=== PATIENT | male | born 1950 | race Caucasian/White ===

== ENCOUNTER 2023-09-17 15:27 | Inpatient (IN) | payer MEDICARE, SELFPAY ==
[2023-09-17] VITALS (23 sets, daily range): BP systolic 115–158; BP diastolic 74–132; PULSE 95–133; RESP 12–42; TEMP 35.8–37.1; O2SAT 86–99; BMI 38.7
--- NOTE | 2023-09-17 17:16 | ED.RN ---
NO OLD EKG
[2023-09-17 17:22] LABS: Absolute Lymphocyte Count 1.61 X10^3/uL (0.83-4.51); Absolute Neutrophil Count 10.3 X10^3/uL (2.0-7.7); Basophil# 0.08 X10^3/uL; Basophil% 0.6 % (0-1); Eosinophil# 0.18 X10^3/uL; Eosinophils% 1.4 % (0-5); Hematocrit 50.3 % (40-54); Hemoglobin 14.8 g/dL (13.0-16.5); Lymphocyte # 1.61 X10^3/ul (0.83-4.51); Lymphocyte % 12.5 % (19-41); Mean Corp Hgb Conc 29.4 g/dL (32-36); Mean Corpuscular Hgb 25.3 pg (27.0-32.0); Mean Corpuscular Volume 85.8 fL (80-94); Monocyte# 0.71 X10^3/uL; Monocyte% 5.5 % (0-10); NRBC Flagged by Analyzer 0 % (0-5); Neutrophil # 10.27 X10^3/uL (2.7-7.7); Neutrophil % 79.5 % (47-70); Platelet Count 187 K/mm3 (150-450); RBC Distribution Width CV 18.2 % (11.6-14.6); RBC Distribution Width SD 54.3 fl (35.1-43.9); Red Blood Count 5.86 M/mm3 (4.6-6.2); White Blood Count 12.9 K/mm3 (4.4-11.0)
[2023-09-17] MEDS: 0.9% Normal Saline (1000mL) 1,000 ML 999 ML IV (17:25)
--- NOTE | 2023-09-17 17:25 | RAD_ITS ---
INDICATION: tachycardia EXAMINATION/TECHNIQUE: X-RAY - XR Chest 1 View COMPARISON: No previous relevant examinations available for comparison.. FINDINGS: LIFE-SUPPORT AND LINES: 1. None HEART AND VESSELS: The cardiac silhouette, pulmonary vasculature have normal appearance. No evidence of congestive failure. LUNGS AND PLEURAL SPACES: Bibasilar atelectasis versus superimposed infiltrate particularly at LEFT lung base and bilateral effusions. No pulmonary mass is noted. MEDIASTINUM AND HILAR REGIONS: No masses adenopathy noted. No areas of calcification. Visualized upper airway is normal in position. BONY ELEMENTS: No acute bony changes noted. RAD/Chest 1 View (Portable) IMPRESSION: 1. Bibasilar atelectasis versus superimposed interstitial infiltrate particularly at LEFT lung base. 2. Bilateral effusions. 3. No congestive failure. Electronically Signed: Demario Alva MD at 17:53 EST ,
[2023-09-17 17:30] LABS: International Normalized Ratio 1.2; Prothrombin Time (Protime)PT. 15.5 SECONDS (11.7-14.9)
[2023-09-17 17:31] LABS: Partial Thromboplast Time 28.3 Seconds (24.1-36.2)
[2023-09-17 17:38] LABS: ALB/GLOB Ratio 0.7 RATIO (0.9-2.4); AST(SGOT) 16 U/L (15-37); Alanine Aminotransfer ALT/SGPT 21 U/L (16-61); Albumin, Serum 2.9 g/dL (3.2-5.0); Alkaline Phosphatase 94 U/L (45-117); Anion Gap 4 (5-15); BUN 25 mg/dL (7-18); BUN/Creat Ratio 22.9 RATIO (10-20); Calcium,Total 9.1 mg/dL (8.5-10.1); Chloride 108 mmol/L (98-107); Creatinine, Serum 1.09 mg/dL (0.70-1.30); EST Glomerular Filtration Rate 71 mL/min (>60); Est Glom Filt Rate - Afr Amer 85 mL/min (>60); Glucose 167 mg/dL (74-106); Potassium 4.3 mmol/L (3.5-5.1); Protein, Total 6.9 g/dL (6.4-8.2); Sodium Level 142 mmol/L (136-145)
--- NOTE | 2023-09-17 17:54 | EX.ED.DYSGE1 ---
HPI History of Present Illness Chief Complaint: Wound Check Narrative Narrative: 73-year-old male presenting with a blister on the right tibial region. He states it started hurting yesterday and felt like a nail in his tibia but now it does not hurt at all and he has developed a mildly erythematous pustule. Denies any trauma. Patient states that he has a history of A-fib, hypertension, hyperlipidemia COPD, anxiety diabetes. States has been out of his medications for A-fib for several months. He states he could not afford them. He states he was previously on something for heart rate control and Eliquis. He has not been taking these. Patient states that has been month. Still he did not have any healthcare insurance but now has it. He is not established with a primary care physician. Patient states he became quite sick over the last 2 weeks and started with chills and cough with sputum. Had not a fever that he knows of. No nausea or vomiting. Patient states he is unable to shake the cold that he had. He was not tested for anything. Patient states that he is not having any chest pain but he is short of breath. He does not usually require oxygen and showed up today on room air at 86%. His significant other states that she has been putting him on oxygen while he sleeps at night for the last couple of days which belongs to her. Patient is an every day smoker. [facility] Medical History Anxiety Atrial fibrillation Atrial flutter COPD (chronic obstructive pulmonary disease) Diabetes mellitus Diabetic neuropathy Hyperlipidemia associated with type 2 diabetes mellitus Hypertension Stenosis of right internal carotid artery Home Medications gabapentin 100 mg capsule 100 mg PO TID 09/17/23 [History Last Taken 09/17/23] hydroxyzine pamoate 25 mg capsule 25 mg PO TID 09/17/23 [History Last Taken Unknown] lorazepam 0.5 mg tablet (Ativan) 0.5 mg PO DAILY 09/17/23 [History Last Taken 09/17/23] losartan 50 mg tablet (Cozaar) 50 mg PO DAILY 09/17/23 [History Last Taken 09/17/23] sertraline 50 mg tablet (Zoloft) 50 mg PO DAILY 09/17/23 [History Last Taken Unknown] Allergy/AdvReac Type Severity Reaction Status Date / Time No Known Allergies Allergy Verified 09/17/23 15:28 Social History Smoking Status: Heavy Smoker (>10/day) EXAM Physical Exam Const Vital Signs: 09/17/23 15:28 09/17/23 17:03 09/17/23 17:05 Temperature 97.1 F L 98.6 F Temperature Source Temporal Oral Pulse Rate 131 H 130 H Respiratory Rate 22 H 18 Respiratory Effort Short of Breath Respiratory Pattern Tachypnea Blood Pressure 136/88 H 140/97 H Blood Pressure Mean 104 111 Pulse Ox 86 97 Oxygen Delivery Method Room Air Nasal Cannula Oxygen Flow Rate (L/min) 2 Fraction of Inspired Oxygen (FIO2) 09/17/23 17:11 09/17/23 18:14 09/17/23 18:17 Temperature Temperature Source Pulse Rate 99 104 H Respiratory Rate 25 H 20 H Respiratory Effort Respiratory Pattern Tachypnea Blood Pressure 115/84 H Blood Pressure Mean 94 Pulse Ox 96 Oxygen Delivery Method Room Air Room Air Oxygen Flow Rate (L/min) Fraction of Inspired Oxygen (FIO2) 09/17/23 19:05 09/17/23 19:14 09/17/23 19:15 Temperature 98.7 F Temperature Source Oral Pulse Rate 132 H 102 H 99 Respiratory Rate 33 H 28 H 31 H Respiratory Effort Respiratory Pattern Blood Pressure 129/93 H 141/74 H Blood Pressure Mean 105 95 Pulse Ox 92 95 Oxygen Delivery Method Nasal Cannula Nasal Cannula Oxygen Flow Rate (L/min) 2 Fraction of Inspired Oxygen (FIO2) 09/17/23 19:20 09/17/23 20:00 09/17/23 19:30 Temperature Temperature Source Pulse Rate 131 H 122 H 114 H Respiratory Rate 42 H 27 H 33 H Respiratory Effort Respiratory Pattern Tachypnea Blood Pressure 129/119 H Blood Pressure Mean 124 Pulse Ox 99 Oxygen Delivery Method Oxygen Flow Rate (L/min) Fraction of Inspired Oxygen (FIO2) 30 09/17/23 19:40 09/17/23 19:45 09/17/23 19:50 Temperature Temperature Source Pulse Rate 132 H 133 H 132 H Respiratory Rate 36 H 27 H 34 H Respiratory Effort Respiratory Pattern Blood Pressure 145/132 H Blood Pressure Mean 137 Pulse Ox Oxygen Delivery Method Oxygen Flow Rate (L/min) Fraction of Inspired Oxygen (FIO2) 09/17/23 20:00 09/17/23 20:10 Temperature 97.6 F L Temperature Source Temporal Pulse Rate 131 H 133 H Respiratory Rate 26 H 15 Respiratory Effort Respiratory Pattern Blood Pressure 138/102 H Blood Pressure Mean 113 Pulse Ox 99 Oxygen Delivery Method Bi-pap Oxygen Flow Rate (L/min) Fraction of Inspired Oxygen (FIO2) Positive unkempt Constitutional Narrative: Tachypneic. Speaking in one-word sentences. General Appearance ED: unkempt HEENT Reports dry mucous membranes trauma Mouth ED: Yes dry mucous membranes Mouth: dry mucous membranes Eyes PERRL and EOMs intact bilaterally General Eye ED: Negative for pale conjunctiva Chest Wall inspection of chest normal Resp Resp Narrative: Neck. Auscultation: wheezes scattered wheezes and diminished lung sounds bilateral lower Cardio Rate: tachycardic Rhythm: abnormal rhythm irregularly irregular GI normal to inspection, nondistended, normoactive bowel sounds Back/Spine no CVA tenderness Neuro oriented x3 and CN's II-XII intact bilaterally Psych Appearance: unkempt MDM MDM MDM Narrative Medical decision making narrative: Patient presenting hypoxic with tachycardia and in mild respiratory distress. He is talking in short sentences. Patient has history of medical noncompliance with medication for A-fib as well as he is a current smoker with history of COPD. He is also had recent illness. Differential includes acute coronary syndrome, CHF, pneumonia, COVID, influenza, dehydration, anemia, electro abnormalities, A-fib, a flutter, COPD exacerbation. CBC was obtained to assess white blood cell count, hemoglobin, platelets. CMP to assess liver function, renal function, electrolytes, glucose. Lactic acid was obtained as part of a septic workup. PT/INR also obtained and INR is normal. PTT minimally prolonged at 50.5. Electrolytes within normal limits. Renal function normal. Glucose 167 without anion gap. BNP elevated at 373.6. EKG on my interpretation showed A-fib at a ventricular rate of 130. Patient given 20 of Cardizem and his heart rate came down to about 100. He was initially feeling better but became very anxious. He expresses to me that is a history of anxiety so he was given 0.5 mg of Ativan. D-dimer was elevated so he was taken for CTA which does not identify any PE, dissection. Does identify bibasilar pneumonia. Chest x-ray on my interpretation did show basilar infiltrates. Since BNP was elevated he was given Lasix 40 mg IV. He was covered with Rocephin and azithromycin for his infiltrates. COVID came back positive after this. For his COPD and wheezing he was given Solu-Medrol 125 and breathing treatments. He is currently on BiPAP as he was anxious and tachypneic and this seems to be helping him. Reevaluation at 8:30 PM the patient is doing very well and resting comfortably and states that the BiPAP is working. Discussed with hospitalist for admission. Impression: 1. COVID-19 2. Bilateral pneumonia 3. Hypoxic respiratory failure 4. CHF 5. COPD 6. Medical noncompliance 7. Atrial fibrillation Lab Data Attestation: I reviewed the patient's lab results. Labs: Laboratory Results - last 24 hr 09/17/23 09/17/23 17:00 18:01 WBC 12.9 H RBC 5.86 Hgb 14.8 Hct 50.3 MCV 85.8 MCH 25.3 L MCHC 29.4 L RDW Std Deviation 54.3 H RDW Coeff of Bettie 18.2 H Plt Count 187 MPV 10.0 Immature Gran % (Auto) 0.500 Neut % (Auto) 79.5 H Lymph % (Auto) 12.5 L [place] % (Auto) 5.5 Eos % (Auto) 1.4 Baso % (Auto) 0.6 Absolute Neuts (auto) 10.3 H Absolute Lymphs (auto) 1.61 Nucleated RBC % 0 PT 15.5 H INR 1.2 APTT 28.3 D-Dimer Quant (PE/DVT) 1.52 H* Sodium 142 Potassium 4.3 Chloride 108 H Carbon Dioxide 30.0 Anion Gap 4 L BUN 25 H Creatinine 1.09 Est GFR (MDRD) Af Amer 85 Est GFR (MDRD) Non-Af 71 BUN/Creatinine Ratio 22.9 H Glucose 167 H Lactic Acid 1.2 Calcium 9.1 Total Bilirubin 0.80 AST 16 ALT 21 Alkaline Phosphatase 94 B-Natriuretic Peptide 373.6 H Total Protein 6.9 Albumin 2.9 L Globulin 4.0 Albumin/Globulin Ratio 0.7 L Urine Color Yellow Urine Clarity Clear Urine pH 5.0 Ur Specific Tyler 1.030 Urine Protein 100 H Urine Glucose (UA) Normal Urine Ketones Negative Urine Occult Blood Negative Urine Nitrite Negative Urine Bilirubin Negative Urine Urobilinogen 1 H Ur Leukocyte Esterase 25 H Urine RBC 0 SEEN Urine WBC 0-5 SEEN Ur Squamous Epith Cells 0 SEEN Urine Bacteria 0 SEEN Urine Mucus 0 SEEN ABG Data ABG results: ABG 09/17/23 19:36 Specimen Type ART Sample Site L Radial pH 7.39 Bicarbonate Actual 27.7 H Total CO2 29 Base Excess 3 H O2 Saturation 92 L O2 % 2.0 ABG pCO2 46.0 H ABG pO2 65 L Gennaro Test Positive O2 Delivery Device Cannula Vent Mode Not entered Radiography Diagnostic Testing: Clinical Impression(s) from Imaging Studies Chest X-Ray 09/17/23 17:25 IMPRESSION: 1. Bibasilar atelectasis versus superimposed interstitial infiltrate particularly at LEFT lung base. 2. Bilateral effusions. 3. No congestive failure. Electronically Signed: Demario Alva MD at 17:53 EST , Chest CTA 09/17/23 18:21 IMPRESSION: undefined Critical Care Time Critical Care Time: Yes Critical care time (excluding procedures): 30-74 minutes (32), Discussing w/Patient &/or Family/Carbon Lamp Cleaner, Discussing w/Consultants, Arranging Admission or Transfer and Performing Direct Patient Care at Bedside Discharge Plan Triage Chief Complaint: Wound Check ED Provider: Jimi Bustillos Dx/Rx/DC Orders Prescriptions: No Action lorazepam [Ativan] 0.5 mg tablet 0.5 mg PO DAILY losartan [Cozaar] 50 mg tablet 50 mg PO DAILY gabapentin 100 mg capsule 100 mg PO TID sertraline [Zoloft] 50 mg tablet 50 mg PO DAILY hydroxyzine pamoate 25 mg capsule 25 mg PO TID Primary Care Provider: Care Physician,No Primary Referrals: Care Physician,No Primary [Primary Care Provider] -
[2023-09-17] MEDS: dilTIAZem 25 MG/5 ML Vial 20 MG IV BOLUS (17:58)
[2023-09-17 18:06] LABS: Bacteria 0 SEEN /hpf (None Seen); Mucous, Urine 0 SEEN /hpf (<or=2+); Red Blood Cells-Urine 0 SEEN /hpf (0-5); Squamous Epithelial Cells - UA 0 SEEN /hpf (0-5)
[2023-09-17 18:07] LABS: Color, Urine Yellow (Yellow); Glucose, Dipstick Normal (Normal); Ketone-Dipstick Negative (Negative); Leukocyte Esterase-Dipstick 25 /ul (Negative); Nitrite-Dipstick Negative (Negative); Occult Blood-Urine Negative /ul (Negative); Protein-Dipstick 100 mg/dl (Negative); Urine Bilirubin Dipstick Negative (Negative); Urine Clarity Clear (Clear); Urine Urobilinogen 1 mg/dl (Normal)
[2023-09-17] MEDS: MethylPREDNISolone 125 MG/2 ML Vial IV (18:10)
[2023-09-17] MEDS: Furosemide 40 MG/4 ML Vial IV (18:11)
[2023-09-17] MEDS: Ipratropium/Albuterol Sulfate 3 ML AMPUL.NEB INHALATION (18:13)
[2023-09-17] MEDS: Albuterol 2.5 MG/3 ML VIAL.NEB. INHALATION (18:13)
[2023-09-17 18:16] LABS: D-Dimer Quantitative (DVT/PE) 1.52 FEU/ug/m (0.27-0.49)
[2023-09-17 18:18] LABS: White Blood Cells 0-5 SEEN /hpf (0-5)
--- NOTE | 2023-09-17 18:21 | CT_ITS ---
STUDY: CTA CHEST REASON FOR EXAM: Male, 73 years old. hypoxia RADIATION DOSAGE (If Supplied By Facility): CTDIvol = ( 31.66 ) mGy, DLP = ( 633.53 ) mGycm TECHNIQUE: The examination was performed with the intravenous administration of IV 100mL Isovue-370. Post-processing of the angiographic images was performed, with multiplanar reformation and 3D reconstruction. Individualized dose optimization techniques were used for this CT. Radiation Dose (provided by facility) CTDIvol (NA ) mGy, DLP ( NA) mGy-cm COMPARISON: None. FINDINGS: Tubes and lines: 1. No life-support noted. CTA: PULMONARY ARTERIES: There is normal configuration and contrast opacification of pulmonary outflow tract, main pulmonary arteries, segmental and intersegmental pulmonary arteries bilaterally without evidence of intraluminal filling defects. AORTIC ARCH: The aortic arch and descending aorta have normal configuration. No evidence of dissection or aneurysmal dilatation. HEART: Cardiac contour is normal. No evidence pericardial effusion. Diffuse coarse coronary vascular calcifications CT CHEST: LUNGS: [Bilateral pleural effusions. Focal area of airspace consolidation involving the lingula of the LEFT upper lobe, and patchy area of parenchymal consolidation along the anterior aspect of the RIGHT major fissure. There is extensive bibasilar interstitial and groundglass infiltrate and areas of atelectasis. PLEURAL SPACES: Bilateral pleural fluid collections.. MEDIASTINUM AND LYMPH NODES: Unremarkable. No significant adenopathy. Calcified nodes are present at the LEFT hilum. BONES: Unremarkable. Diffuse thoracic spondylosis and marginal osteophyte formation. No canal stenosis. ABDOMEN: Moderate ascites. Other: None IMPRESSIONS: 1. No CTA evidence of pulmonary embolism. 2. No CTA evidence of aortic aneurysm or dissection 3. Normal CT appearance of the heart and pericardium with the exception of coronary vascular calcifications.. 4. Bilateral pleural fluid collections, basilar atelectasis and superimposed interstitial and groundglass infiltrates at both lung bases. Bibasilar pneumonia suspected. Additional consolidation in the lingula of LEFT upper lobe and along the major fissure on the RIGHT. Electronically Signed: Demraio Alva MD at 19:17 EST , CT/CTA Chest W/WO Contrast IMPRESSION: undefined
[2023-09-17 18:22] LABS: Lactic Acid 1.2 mmol/L (0.4-1.9)
[2023-09-17 18:48] LABS: BNP,B-Type NATRIURETIC PEPTIDE 373.6 pg/mL (0-100)
[2023-09-17] MEDS: LORazepam 2 MG/ML Syringe 0.5 MG IV (19:03)
[2023-09-17 19:40] LABS: Allen Test Positive; Base Excess 3 mmol/L (-2 to +2); Bicarbonate 27.7 mmol/L (22-26); Blood Gas Specimen Type ART; Mode Not entered; O2 Delivery Device Cannula; PO2 65 mmHG (75-100); SITE L Radial; SO2 92 % (95-99); Total Carbon Dioxide 29 mmol/L; pH 7.39 (7.35-7.45)
[2023-09-17] MEDS: Ceftriaxone 1 GM/50 ML BAG IV (19:55)
--- NOTE | 2023-09-17 20:26 | PCM.HP.STD ---
Documented by User: Dr. Amparo Sotelo MD 09/17/23 20:35 HPI - General General Date of Admission: 09/17/23 Date of Service: 09/17/23 Chief Complaint: Feeling poorly for the past month. HPI Narrative ANNA PEREYRA, is a 73 M with a past medical history of essential hypertension, hyperlipidemia, DM-2; of unknown control, diabetic neuropathy, history of tobacco abuse; with subsequent COPD, chronic atrial fibrillation; not taking Eliquis because he could not afford medication, history of Right carotid stenosis, chronic RLE wound and medical noncompliance; with patient out of several medications for months who presents to [facility] ER complaining of feeling poorly for the past month. Mr. Pereyra reports his symptoms [facility] Medical History Anxiety Atrial fibrillation Atrial flutter COPD (chronic obstructive pulmonary disease) Diabetes mellitus Diabetic neuropathy Hyperlipidemia associated with type 2 diabetes mellitus Hypertension Stenosis of right internal carotid artery Home Medications gabapentin 100 mg capsule 100 mg PO TID 09/17/23 [History Last Taken 09/17/23] hydroxyzine pamoate 25 mg capsule 25 mg PO TID 09/17/23 [History Last Taken Unknown] lorazepam 0.5 mg tablet (Ativan) 0.5 mg PO DAILY 09/17/23 [History Last Taken 09/17/23] losartan 50 mg tablet (Cozaar) 50 mg PO DAILY 09/17/23 [History Last Taken 09/17/23] sertraline 50 mg tablet (Zoloft) 50 mg PO DAILY 09/17/23 [History Last Taken Unknown] Allergy/AdvReac Type Severity Reaction Status Date / Time No Known Allergies Allergy Verified 09/17/23 15:28 Social History household members: significant other current occupational status: retired Smoking Status: Heavy Smoker (>10/day) Vital Signs Vital Signs Vital Signs: 09/17/23 15:28 09/17/23 17:03 09/17/23 17:05 Temperature 97.1 F L 98.6 F Temperature Source Temporal Oral Pulse Rate 131 H 130 H Respiratory Rate 22 H 18 Respiratory Effort Short of Breath Respiratory Pattern Tachypnea Blood Pressure 136/88 H 140/97 H Blood Pressure Mean 104 111 Pulse Ox 86 97 Oxygen Delivery Method Room Air Nasal Cannula Oxygen Flow Rate (L/min) 2 Fraction of Inspired Oxygen (FIO2) 09/17/23 17:11 09/17/23 18:14 09/17/23 18:17 Temperature Temperature Source Pulse Rate 99 104 H Respiratory Rate 25 H 20 H Respiratory Effort Respiratory Pattern Tachypnea Blood Pressure 115/84 H Blood Pressure Mean 94 Pulse Ox 96 Oxygen Delivery Method Room Air Room Air Oxygen Flow Rate (L/min) Fraction of Inspired Oxygen (FIO2) 09/17/23 19:05 09/17/23 19:14 09/17/23 19:15 Temperature 98.7 F Temperature Source Oral Pulse Rate 132 H 102 H 99 Respiratory Rate 33 H 28 H 31 H Respiratory Effort Respiratory Pattern Blood Pressure 129/93 H 141/74 H Blood Pressure Mean 105 95 Pulse Ox 92 95 Oxygen Delivery Method Nasal Cannula Nasal Cannula Oxygen Flow Rate (L/min) 2 Fraction of Inspired Oxygen (FIO2) 09/17/23 19:20 09/17/23 20:00 09/17/23 19:30 Temperature Temperature Source Pulse Rate 131 H 122 H 114 H Respiratory Rate 42 H 27 H 33 H Respiratory Effort Respiratory Pattern Tachypnea Blood Pressure 129/119 H Blood Pressure Mean 124 Pulse Ox 99 Oxygen Delivery Method Oxygen Flow Rate (L/min) Fraction of Inspired Oxygen (FIO2) 30 09/17/23 19:40 09/17/23 19:45 09/17/23 19:50 Temperature Temperature Source Pulse Rate 132 H 133 H 132 H Respiratory Rate 36 H 27 H 34 H Respiratory Effort Respiratory Pattern Blood Pressure 145/132 H Blood Pressure Mean 137 Pulse Ox Oxygen Delivery Method Oxygen Flow Rate (L/min) Fraction of Inspired Oxygen (FIO2) 09/17/23 20:00 09/17/23 20:10 Temperature 97.6 F L Temperature Source Temporal Pulse Rate 131 H 133 H Respiratory Rate 26 H 15 Respiratory Effort Respiratory Pattern Blood Pressure 138/102 H Blood Pressure Mean 113 Pulse Ox 99 Oxygen Delivery Method Bi-pap Oxygen Flow Rate (L/min) Fraction of Inspired Oxygen (FIO2) Results Lab / Micro Data 09/17/23 17:00 09/17/23 17:00 Labs: Laboratory Results - last 24 hr 09/17/23 17:00: WBC 12.9 H, RBC 5.86, Hgb 14.8, Hct 50.3, MCV 85.8, MCH 25.3 L, MCHC 29.4 L, RDW Std Deviation 54.3 H, RDW Coeff of Bettie 18.2 H, Plt Count 187, MPV 10.0, Immature Gran % (Auto) 0.500, Neut % (Auto) 79.5 H, Lymph % (Auto) 12.5 L, [place] % (Auto) 5.5, Eos % (Auto) 1.4, Baso % (Auto) 0.6, Absolute Neuts (auto) 10.3 H, Absolute Lymphs (auto) 1.61, Nucleated RBC % 0, PT 15.5 H, INR 1.2, APTT 28.3, D-Dimer Quant (PE/DVT) 1.52 H*, Sodium 142, Potassium 4.3, Chloride 108 H, Carbon Dioxide 30.0, Anion Gap 4 L, BUN 25 H, Creatinine 1.09, Est GFR (MDRD) Af Amer 85, Est GFR (MDRD) Non-Af 71, BUN/Creatinine Ratio 22.9 H, Glucose 167 H, Lactic Acid 1.2, Calcium 9.1, Total Bilirubin 0.80, AST 16, ALT 21, Alkaline Phosphatase 94, B-Natriuretic Peptide 373.6 H, Total Protein 6.9, Albumin 2.9 L, Globulin 4.0, Albumin/Globulin Ratio 0.7 L 09/17/23 18:01: Urine Color Yellow, Urine Clarity Clear, Urine pH 5.0, Ur Specific [place] 1.030, Urine Protein 100 H, Urine Glucose (UA) Normal, Urine Ketones Negative, Urine Occult Blood Negative, Urine Nitrite Negative, Urine Bilirubin Negative, Urine Urobilinogen 1 H, Ur Leukocyte Esterase 25 H, Urine RBC 0 SEEN, Urine WBC 0-5 SEEN, Ur Squamous Epith Cells 0 SEEN, Urine Bacteria 0 SEEN, Urine Mucus 0 SEEN Micro: Microbiology 09/17/23 17:27 Mucosa - Nose SARS-CoV-2, Influenza & RSV (PCR) - Final SARS-CoV-2 (COVID 19) ABG Data ABG results: ABG 09/17/23 19:36 Specimen Type ART Sample Site L Radial pH 7.39 Bicarbonate Actual 27.7 H Total CO2 29 Base Excess 3 H O2 Saturation 92 L O2 % 2.0 ABG pCO2 46.0 H ABG pO2 65 L Gennaro Test Positive O2 Delivery Device Cannula Vent Mode Not entered Imagaing Radiology Impression Chest X-Ray 09/17/23 17:25 IMPRESSION: 1. Bibasilar atelectasis versus superimposed interstitial infiltrate particularly at LEFT lung base. 2. Bilateral effusions. 3. No congestive failure. Electronically Signed: Demario Alva MD at 17:53 EST , Chest CTA 09/17/23 18:21 IMPRESSION: undefined Assessment & Plan Assessment/Plan (1) COVID-19: (2) Bacterial pneumonia: (3) Acute exacerbation of COPD with asthma: (4) Chronic atrial fibrillation with rapid ventricular response: (5) Cellulitis of right leg: (6) Medical non-compliance: Documented by User: Dr. Donn Tirado DO 09/18/23 05:18 HPI - General General Date of Admission: 09/17/23 HPI Narrative ANNA PEREYRA, is a 73 M with a past medical history of essential hypertension, hyperlipidemia, DM-2; of unknown control, diabetic neuropathy, chronic tobacco abuse that is still ongoing; with subsequent COPD, chronic atrial fibrillation; not taking Eliquis because he could not afford medication, history of Right carotid stenosis, chronic RLE wound and medical noncompliance; with patient out of several medications for months who presents to [facility] ER complaining of feeling poorly for the past month. Mr. Pereyra reports his acute symptoms began approximately 2 weeks prior to admission with the gradual-onset of a viral URI that slowly progressed to involve chills, malaise and cough productive of whitish sputum. He does not usually require supplemental oxygen but today in the ER his oxygen saturation was 86% on RA. He denies associated fever, chest pain, nausea or vomiting but he does admit to an acute worsening of his chronic generalized anxiety. In the ER his viral assay returned positive for COVID-19 complicated by radiographic evidence of bibasilar infiltrates suspicious for bacterial pneumonia superinfection compounded by clinical evidence of AE COPD with acute hypoxic respiratory failure; requiring BiPAP, all collectively triggering atrial fibrillation; with RVR requiring initiation of treatment with IV Cardizem and he was then admitted to the PCU for ongoing care for a stay that is expected to be greater than 48 hours. [facility] Medical History Anxiety Atrial fibrillation Atrial flutter COPD (chronic obstructive pulmonary disease) Diabetes mellitus Diabetic neuropathy Hyperlipidemia associated with type 2 diabetes mellitus Hypertension Stenosis of right internal carotid artery Home Medications gabapentin 100 mg capsule 100 mg PO TID 09/17/23 [History Last Taken 09/17/23] hydroxyzine pamoate 25 mg capsule 25 mg PO TID 09/17/23 [History Last Taken Unknown] lorazepam 0.5 mg tablet (Ativan) 0.5 mg PO DAILY 09/17/23 [History Last Taken 09/17/23] losartan 50 mg tablet (Cozaar) 50 mg PO DAILY 09/17/23 [History Last Taken 09/17/23] sertraline 50 mg tablet (Zoloft) 50 mg PO DAILY 09/17/23 [History Last Taken Unknown] Allergy/AdvReac Type Severity Reaction Status Date / Time No Known Allergies Allergy Verified 09/17/23 15:28 Social History household members: significant other current occupational status: retired Smoking Status: Heavy Smoker (>10/day) ROS ROS Narrative Review of systems: Constitutional: Patient appears unkempt and is speaking in 1-2 word sentences but denies fever or chills. Eyes: Patient denies visual changes or discharge from eyes. ENT: Patient admits to viral upper respiratory infection with nasal and chest congestion but denies sore throat or ear pain. Cardiovascular: Patient denies chest pain or palpitations. Gastrointestinal: Patient denies nausea, vomiting, diarrhea or constipation. Musculoskeletal: Patient admits to generalized weakness and lower extremity edema. Integumentary: Patient admits to recent cyst on his right garcia with recent rupture and subsequent surrounding cellulitis with tenderness to palpation. Neurologic: Patient denies headache, paresthesias or focal neurologic deficits. Allergic: Patient denies lip swelling, tongue swelling or urticaria. Hematologic: Patient denies easy bleeding or easy bruisability. Psychiatric: Patient denies uncontrolled depression or anxiety. Endocrinologic: Patient denies polyuria, polydipsia or polyphagia. 14 point review systems otherwise negative except for positives noted above in HPI. Physical Exam Const alert and oriented x3 Constitutional Narrative: Patient is morbidly obese, appears older than stated age and has mildly labored respirations on BiPAP. General Appearance: cooperative HEENT normocephalic, head/scalp atraumatic, hearing grossly normal bilaterally and moist oral mucous membranes Eyes PERRL and EOMs intact bilaterally Neck no lymphadenopathy and supple Resp Resp Narrative: Minich breath sounds throughout with scattered wheezes and rhonchi. Auscultation: rhonchi and wheezes Cardio Cardio Narrative: Irregularly irregular at approximately 130 bpm. GI normal to inspection, nondistended, normoactive bowel sounds, soft to palpation, non-tender and non-distended Extremity Extremity Narrative: Patient has evidence of recent cyst rupture on his right anterior garcia with surrounding erythema and tenderness to palpation consistent with cellulitis. Skin Skin Narrative: Patient has evidence of recent cyst rupture on his right anterior garcia with surrounding erythema and tenderness to palpation consistent with cellulitis. Neuro oriented x3, CN's II-XII intact bilaterally, moves all extremities and no focal motor deficits Sensorium / Orientation: awake, alert, oriented to person, oriented to place and oriented to time Speech: speech normal Motor Exam: strength 5/5 throughout Psych affect normal Results Medical Records Data Attestation: I reviewed the patient's medical records Lab / Micro Data Attestation: I reviewed the patient's lab results. Lab results narrative: [facility] [address] [place] [address] CTA Chest W/WO Contrast MR#: [id number] Acct: [id number] Name: ANNA PEREYRANE Rep #: [id number] : 1950 M 73 From: Demario Alva MD PCP: Care Physician,No Primary Status: REG ER Study: CTA Chest W/WO Contrast Date of Exam: 09/17/23 Exam# [id number] Ordering Dr: Jimi Bustillos DO STUDY: CTA CHEST REASON FOR EXAM: Male, 73 years old. hypoxia RADIATION DOSAGE (If Supplied By Facility): CTDIvol = ( 31.66 ) mGy, DLP = ( 633.53 ) mGycm TECHNIQUE: The examination was performed with the intravenous administration of IV 100mL Isovue-370. Post-processing of the angiographic images was performed, with multiplanar reformation and 3D reconstruction. Individualized dose optimization techniques were used for this CT. Radiation Dose (provided by facility) CTDIvol (NA ) mGy, DLP ( NA) mGy-cm COMPARISON: None. FINDINGS: Tubes and lines: 1. No life-support noted. CTA: PULMONARY ARTERIES: There is normal configuration and contrast opacification of pulmonary outflow tract, main pulmonary arteries, segmental and intersegmental pulmonary arteries bilaterally without evidence of intraluminal filling defects. AORTIC ARCH: The aortic arch and descending aorta have normal configuration. No evidence of dissection or aneurysmal dilatation. HEART: Cardiac contour is normal. No evidence pericardial effusion. Diffuse coarse coronary vascular calcifications CT CHEST: LUNGS: [Bilateral pleural effusions. Focal area of airspace consolidation involving the lingula of the LEFT upper lobe, and patchy area of parenchymal consolidation along the anterior aspect of the RIGHT major fissure. There is extensive bibasilar interstitial and groundglass infiltrate and areas of atelectasis. PLEURAL SPACES: Bilateral pleural fluid collections.. MEDIASTINUM AND LYMPH NODES: Unremarkable. No significant adenopathy. Calcified nodes are present at the LEFT hilum. BONES: Unremarkable. Diffuse thoracic spondylosis and marginal osteophyte formation. No canal stenosis. ABDOMEN: Moderate ascites. Other: None IMPRESSIONS: 1. No CTA evidence of pulmonary embolism. 2. No CTA evidence of aortic aneurysm or dissection 3. Normal CT appearance of the heart and pericardium with the exception of coronary vascular calcifications.. 4. Bilateral pleural fluid collections, basilar atelectasis and superimposed interstitial and groundglass infiltrates at both lung bases. Bibasilar pneumonia suspected. Additional consolidation in the lingula of LEFT upper lobe and along the major fissure on the RIGHT. Electronically Signed: Demario Alva MD at 19:17 EST , CT/CTA Chest W/WO Contrast IMPRESSION: undefined CC: Dr. Jimi Bustillos, DO; No Primary Care Physician ~ [employer]: Signed 09/17/23 17:00 09/17/23 17:00 Assessment & Plan Assessment/Plan (1) COVID-19: (2) Bacterial pneumonia: (3) Acute exacerbation of COPD with asthma: (4) Chronic atrial fibrillation with rapid ventricular response: (5) Cellulitis of right leg: (6) Medical non-compliance: PLAN: Plan 1. Acute COVID-19 pneumonitis complicated by bibasilar bacterial pneumonia superinfection - Admit to PCU under contact and droplet precautions. Continue broad-spectrum antibiotics and await culture and sensitivity data. Give Tylenol prn for pain or fever. Give scheduled Mucinex BID to both thin and mobilize secretions. Give vitamin D3, vitamin C and Zinc to promote a healthy immune response and to help speed recovery. 2. AE COPD with acute hypoxic respiratory failure requiring BiPAP arising from #1 - Continue IV Solumedrol with scheduled and prn nebulizers. Tobacco cessation will be strongly encouraged with Nicotine patch offered to control cravings. 3. Chronic Atrial Fibrillation; with RVR attributable to #1 & #2 - Resume IV Cardizem begun in the ER and titrate to keep heart rate < 100 bpm. Also start full-dose Lovenox for CVA prophylaxis. Serialize troponin. Check echocardiogram to evaluate LVEF. 4. Cellulitis of the Left leg with recent ruptured cyst with severe bilateral leg edema adding to the pathology of #1 - #3 - Noted. Antibiotics for #1 should help this to resolve. MRSA PCR pending. Elevated d-dimer of 1.52 present on admission with negative CTA of the chest. Check bilateral LE dopplers in the AM to evaluate for potential DVT. Finally, we will consult the Wound RN to see this patient on-rounds in the AM for further recommendations with help appreciated in advance. 5. Medical Noncompliance with Acute flare of chronic generalized anxiety - Patient was encouraged to take his medications as prescribed and keep his follow appointments as recommended. Continue Ativan prn for breakthrough anxiety. 6. Essential hypertension - Restart home regimen plus give IV Hydralazine for systolic blood pressure > 160 mm Hg. 7. Hyperlipidemia - Continue statin and check lipid profile this admission. 8. DM-2; of unknown control with diabetic neuropathy - ADA/Cardiac diet. FSBS q. AC/HS plus SSI. Check HgbA1c to objectively assess quality of diabetic control. 9. History of Right carotid stenosis - Stable. 10. DVT/GI prophylaxis - Patient already on full-dose Lovenox for #3. We will also start IV Pepcid in light of steroids for #2. Avoid SCD's until DVT definitively ruled out on doppler examination. Total time: Approximately 55 minutes. Charges/Coding Visit Charges Inpatient E&M: 85015 Init Hosp L2
[2023-09-17] MEDS: Azithromycin 500 MG in Dextrose 5%-Water (250mL Bag) 250 ML 250 MG IV (20:30)
--- OUTSIDE RECORDS SUMMARY | 2023-09-17 21:01 | XMS RPT_ITS | CCD ---
Author Name Unknown Address [address] [place] [address] Organization [facility] Care Team Providers Care Color Control Supervisor Name Role Phone BIAS, BALDEV LAZAR Attending Unavailable BIAS, BALDEV LAZAR Referring Unavailable ELLIE, STERLING Primary Care Unavailable BIAS, BALDEV LAZAR Attending Unavailable BIAS, BALDEV LAZAR Referring Unavailable ELLIE, STERLING Primary Care Unavailable TERRI, LARY DEL REAL Referring Unavail able MURRAY, LARY DEL REAL Attending Unavail able VIVI VERA Primary Care Unavailable MURRAY, LARY DEL REAL Referring Unavail able MURRAY, LARY DEL REAL Attending Unavail able VIVI VERA Primary Care Unavailable ELLIE, STERLING Primary Care Unavailable ELLIE, STERLING Attending Unavailable ANGELA WHITE Consulting Unava ilCARLTON Sahni Admitting Unavailabl e TERRI, LARY DEL REAL Attending Unavail able VIVI VERA Primary Care Unavailable HU RAMIREZ Consulting Unavailable BIAS, BALDEV LAZAR Attending Unavailable ELLIE, STERLING Primary Care Unavailable Gustabo, Kiah Attending Unavailable VIVI VERA Primary Care Unavailable Gustabo, Kiah Referring Unavailable Montejo, Kiah Attending Unavailable VIVI VERA Primary Care Unavailable BIAS, BALDEV LAZAR Attending Unavailable BIAS, BALDEVALEE LAZAR Referring Unavailable ELLIE, STERLING Primary Care Unavailable Problems Active Problems Problem Classification Problem Date Documented Date Episodic/Chronic Anxiety disorders (3 sources) Generalized anxiety disorder; Translations: [Anxiety] Onset: 08-21-2022 Chronic Cardiac dysrhythmias (2 sources) Unspecified atrial fibrillation; Translations: [Paroxysmal atrial fibrillation] Onset: 07-28-2022 Chronic Chronic obstructive pulmonary disease and bronchiectasis (2 sources) Chronic obstructive pulmonary disease with (acute) exacerbation; Translations: [Chronic obstructive pulmonary disease, unspecified] Onset: 08-21-2022 Chronic Diabetes mellitus with complications (1 source) Type 2 diabetes mellitus with diabetic polyneuropathy; Translations: [Type 2 diabetes mellitus with diabetic polyneuropathy (HCC)] Onset: 08-21-2022 Chronic Diabetes mellitus without complication (1 source) Diabetes mellitus Onset: 08-21-2022 Chronic Disorders of lipid metabolism (2 sources) Mixed hyperlipidemia; Translations: [Hyperlipidemia] Onset: 08-21-2022 Chronic Essential hypertension (2 sources) Essential (primary) hypertension; Translations: [Hypertensive disorder] Onset: 08-21-2022 Chronic Mood disorders (1 source) Major depressive disorder, recurrent, moderate; Translations: [Major depressive disorder, recurrent, moderate (HCC)] Onset: 07-28-2022 Chronic Occlusion or stenosis of precerebral arteries (1 source) Occlusion and stenosis of right carotid artery; Translations: [Occlusion and stenosis of right carotid artery] Onset: 08-21-2022 Chronic Other nutritional; endocrine; and metabolic disorders (1 source) Obesity, unspecified; Translations: [Obesity, unspecified] Onset: 08-21-2022 Chronic Substance-related disorders (1 source) Nicotine dependence, unspecified, uncomplicated; Translations: [Nicotine dependence, unspecified, uncomplicated] Onset: 08-21-2022 Chronic Past or Other Problems Problem Classification Problem Date Documented Da te Episodic/Chronic Immunizations and screening for infectious disease (2 sources) Encounter for immunization; Translations: [Encounter for screening for other viral diseases] Onset: 08-21-2022 Episodic Nonspecific chest pain (3 sources) Chest pain, unspecified; Translations: [Chest pain] Onset: 07-28-2022 Episodic Other screening for suspected conditions (not mental disorders or infectious disease) (2 sources) Encounter for screening for malignant neoplasm of colon; Translations: [Encounter for screening for lipoid disorders] Onset: 08-21-2022 Episodic Results Test Name Value Interpretation Reference Range Facil ity Encounters Encounter Date Encounter Type Care Provider Facility Start: 2023 End: 2023 Emergency department patient visit BALDEV DENISE [facility] Start: 08-21-2022 End: 08-21-2022 ambulatory [facility] Start: 08-21-2022 Encounter for genera l adult medical examination without abnormal findings [facility] Start: 07-28-2022 End: 07-29-2022 ambulatory ANGELA MARSHALLOHKOBY [facility] Start: 07-28-2022 Emergency department patient visit LARY MURRAY [facility] Start: 07-25-2022 End: 07-25-2022 Emergency department patient visit Kiah Montejo [facility] Payers Date Payer Category Payer Unknown [id number] 2.16. [id number] 1950 Unknown [id number] 2.16. [id number] 1950 Unknown [id number] 2.16. [id number] 1950 Unknown [id number] 2.16. [id number] 1950 Unknown [id number] 2.16. [id number] 1950 Unknown [id number] 2.16. [id number] 1950 Unknown [id number] 2.16. [id number] 1950 Unknown [id number] 2.16. [id number] 1950 Unknown [id number] 2.16. [id number] 1950 Unknown [id number] 2.16. [id number] Medicare [id number] Unknown [id number] Clinical Note 08-21-2022 Note Date & Type Note Facility 08-21-2022 Note Encounter Department : [facility] Progress Notes by Reji García MD at 08/21/2022 1:00 PM Author: RIN Pichardoervice: -Author Type: Physician Filed: 08/25/2022 7:49 AMEncounter Date: 08/21/2022tatus: Signed Boiler Assistant Operator: Reji García MD (Physician) I have seen Anna Yusuf Pereyra 72 y.o. with the resident physician. I agree with the plan of care as outlined by the resident physician. ICD-10-CM 1.Essential hypertension I10 2.Type 2 diabetes mellitus with polyneuropathy (HCC) E11.42 3.Paroxysmal atrial fibrillation (HCC) I48.0 4.Chronic obstructive pulmonary disease, unspecified COPD type (HCC) J44.9 5.Peripheral vascular disease, unspecified (HCC) I73.9 6.Stenosis of right internal carotid artery I65.21 7.Mixed hyperlipidemia E78.2 8.Moderate episode of recurrent major depressive disorder (HCC) F33.1 9.AVELINA (generalized anxiety disorder) F41.1 10.Thrombocytopenia (HCC) D69.6 11.Nicotine use disorder F17.200 12.Need for hepatitis C screening test Z11.59 13.Obesity (BMI 30-39.9) E66.9 This service has been performed in part by a resident under the direct supervision of myself as the teaching physician. I was present during the lynn portions of the visit and participated in the overall management. [facility] Clinical Note 08-21-2022 Note Date & Type Note Facility 08-21-2022 Note Encounter Department : [facility] Progress Notes by Sterling Caballero MD at 08/21/2022 1:00 PM Author: RIN Magdalenoervice: -Author Type: Resident Filed: 08/23/2022 11:37 AMEncounter Date: 08/21/2022tatus: Signed Boiler Assistant Operator: Sterling Caballero MD (Resident) Chief Complaint Patient presents with -Diabetes -Hypertension -Hyperlipidemia HPI: Anna Pereyra 72 y.o. male w/PMH of T2DM, Paroxysmal Afib, COPD, HLPD, nicotine use disorder new to our care and present refills on medications. 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 [place] Wears seatbelt? Yes Eye exams regularly: Last eye exam years ago and no eye insurance Dental exams regularly: No, doesn't have dental insurance Any history of drug use: None Do you feel safe at home: Yes Firearm at home: No, can't due to criminal history Currently sexually active? Not currently, F partner(s) H/o STDs: None Diet: Breakfast oatmeal with OJ, pineapple, peaches, fruit cocktail, salads, soups. Limits red meat, breads, and potatoes. Doesn't really have lunch. Evening meal is more salads and soups. Exercise: Exercise at work via construction job. Able to keep up with young workers and able to keep doing everything at the job. Stools 1 per day, brown, no red or black. Soft banana in consistency. Urine is yellow, no red or brown. Urinates 3-4 times to 9-10 depending on coffee, how long the day is and other things drank due to summer heat with construction. Current sxs/concerns: Just refills and med straightened up Review of Systems Constitutional: Positive for weight loss. Negative for chills, diaphoresis and fever. Reports 50 lb since changing diet for 6 months HENT: Positive for hearing loss. Negative for tinnitus. Chronic no acute hearing loss can hear well otherwise. Eyes: Negative for blurred vision and double vision. Wears glasses Respiratory: Positive for cough, sputum production, shortness of breath and wheezing. Not sure how often but does have COPD history, sometimes some sputum production of white. SOB and wheezing when hot at times/humid at times when working Cardiovascular: Negative for chest pain, palpitations and leg swelling. Gastrointestinal: Negative for blood in stool, constipation, diarrhea, heartburn, melena, nausea and vomiting. Genitourinary: Negative for dysuria, frequency, hematuria and urgency. Musculoskeletal: Positive for joint pain. Chronic join pains in knees, hips, elbows, and shoulders. No new pains today Skin: Negative for itching and rash. Neurological: Positive for tingling and sensory change. Negative for dizziness, weakness and headaches. Tingling and sensory loss to toes, no other sensory loss Endo/Heme/Allergies: Bruises/bleeds easily. On eliquis and does stop for him after applying bandage Past Medical History: DiagnosisDate -Anxiety with depression -Atrial fibrillation (HCC) -COPD (chronic obstructive pulmonary disease) (HCC) -Essential hypertension -AVELINA (generalized anxiety disorder) -Mixed hyperlipidemia -Nicotine use disorder -Obesity (BMI 30-39.9) -Stenosis of right internal carotid artery Less than 50% in 2011 -Type 2 diabetes mellitus with polyneuropathy (HCC) History reviewed. No pertinent surgical history. Family History ProblemRelationAge of Onset -DiabetesMaternal Grandmother Social History Tobacco Use -Smoking status:Every Day Packs/day:0.50 Years:30.00 Pack years:15.00 Types:Cigarettes -Smokeless tobacco:Never -Tobacco comments: 0.5 for 30 years = 15 pack years Substance Use Topics -Alcohol use:Not Currently Comment: occasionally 2-3 times per year Current Outpatient Medications MedicationSigDispenseRefill -albuterol 90 mcg/actuation inhalerInhale 2 puffs into the lungs every 4 hours.1 each0 -apixaban (ELIQUIS) 5 mg tabletTake 1 tablet (5 mg total) by mouth in the morning and 1 tablet (5 mg total) before bedtime.60 tablet0 -aspirin 81 mg chewable tabletaspirin 81 mg chewable tablet CHEW AND SWALLOW 1 TABLET BY MOUTH ONCE DAILY FOR 30 DAYS (Patient not taking: Reported on 08/21/2022) -atorvastatin (LIPITOR) 10 mg tabletTake 1 tablet (10 mg total) by mouth at bedtime.30 tablet0 -buPROPion (WELLBUTRIN XL) 150 mg 24 hr tabletTake by mouth daily. -cholecalciferol (VITAMIN D3) 1,000 unit Tab tabletTake 25 mcg by mouth daily. -gabapentin (NEURONTIN) 600 mg tablet -losartan (COZAAR) 100 mg tabletTake 100 mg by mouth daily. -metFORMIN (GLUCOPHAGE) 1,000 mg tabletTake 1,000 mg by mouth in the morning and 1,000 mg in the evening. Take with meals. -metoprolol succinate (TOPROL XL) 50 mg 24 hr tabletTake 1 tablet (50 mg total) by mouth daily.30 tablet0 -sertraline (ZOLOFT) 100 mg tabletTake 2 tablets (200 mg total) by mouth daily.30 tablet3 -SPIRIVA WITH HANDIHALER 18 mcg inhalation capsuleINHALE 1 PUFF BY MOUTH ONCE DAILY DIRECTED No c (more content not included)... [facility] Clinical Note 08-14-2022 Note Date & Type Note Facility 08-14-2022 Note Care management upda te noted. He is no longer patient at our office. Dismissal letter was sent by certified mail 06/24/22. Provider Locations Clinical Note 07-29-2022 Note Date & Type Note Facility 07-29-2022 Note Encounter Department : [facility] Progress Notes by Julián Zepeda RN at 07/29/2022 2:26 PM Author: SUBHA Martelervice: Nursing HandoffAuthor Type: Registered Nurse Filed: 07/29/2022 2:27 PMDate of Service: 07/29/2022 2:26 PMStatus: Signed Boiler Assistant Operator: Julián Zepeda RN (Registered Nurse) Eliquis card, education on Eliquis, and discharge instructions provided to patient by this nurse. Patient verbalized and demonstrated instructions. [facility] Clinical Note 07-29-2022 Note Date & Type Note Facility 07-29-2022 Note Encounter Department : [facility] Discharge Summary by ROBERTO Covington at 07/29/2022 2:08 PM Author: ROBERTO CovingtonService: Internal MedicineAuthor Type: Nurse Practitioner Filed: 07/29/2022 2:14 PMDate of Service: 07/29/2022 2:08 PMStatus: Attested Boiler Assistant Operator: ROBERTO Covington (Nurse Practitioner)Cosigner: Ambrosio Acharya MD at 07/29/2022 2:56 PM Attestation signed by Ambrosio Acharya MD at 07/29/2022 2:56 PM I saw and examined the patient today in conjunction with the MARY. I've reviewed the above documentation with which I agree and independently verified. I also personally reviewed all pertinent lab, EKG/Telemetry and imaging data available. I performed the substantive portion of the medical decision making for the encounter today. Patient overall doing relatively Well today. Denies any active complaints of chest pain. Troponin continues to remain negative. 2D echo within normal l. Regarding his new onset A. fib he is on Toprol and Eliquis. Risks and benefits of anticoagulation discussed in detail with the patient. He understands bleeding risks including [employer] bleed/ in case of major head trauma. He has agreed to proceed with anticoagulation. This is a shared decision making. Initially patient had verbalized some suicidal concerns/ideations to nursing staff but currently during my interview vehemently denies saying that. He apparently was stressed out about his situation regarding his senior living time and other other family issues but he has no intention to hurt himself or others. He is alert oriented x4. Friend at bedside/I spent consider amount of time at bedside-he says he is stressed but currently does not have any kind of plans for self hurt. Initially psychiatry saw the patient but apparently patient states that he never said he was suicidal. He says that they misunderstood him. [facility] has been involved and he also verbalized no suicidal ideation to [facility] as well. We will discharge him with close outpatient follow-up with PCP. Electronically signed by: Ambrosio Acharya MD 07/29/2022 2:52 PM Discharge Summary Name: Anna Pereyra : [id number] Admitted: 07/28/2022ischarged: 07/29/22 Attending Physician: Ambrosio Acharya MD Dear Dr. Vivi Vera MD, It was my pleasure to take care of your patient, Anna Pereyra, during his recent hospitalization at [facility]. Please see the following discharge summary for his summary of care. Please do not hesitate to contact me through my office if you have any questions. Thank you so much. Sharon Lares, RECEIVABLE CLERK-DOCUMENT MANAGEMENT TECHNICIAN [facility], [address] [address] Discharge Diagnoses: New Onset PAF Chest Pressure 2/2 AF Anxiety/Depression NIDDM II Essential HTN COPD Class I obesity, BMI 32.47 kg per metered squared Hospital Course: Mr. Pereyra was admitted from the [facility] with chest pressure. He was ruled out for acute MS with EKG and serial cardiac enzymes. He was found to be in atrial fibrillation which was a new diagnosis. He was started on Toprol as well as anticoagulation with Eliquis. He is currently converted to sinus rhythm at 64 beats a minute. He will continue on Toprol and Eliquis on discharge. He did initially make statements regarding not wanting to go on any longer but the statements changed once he realized he was no longer in custody and he now denies them and says that we were twisting his words. He has no desire to hurt himself in any way. He plans to hopefully go back to work and back to his home. He is sitting in his room with his lifelong friend who agrees. He is medically stable and will be discharged today. Follow-up and medications as below. The remainder of the patient's chronic medical issues remained stable and appropriately treated with home regimens throughout this admission. On the date of discharge, the patient was found to not be in any acute distress, with vital signs within normal limits, and no new abnormalities on physical examination. Further, the patient expressed appropriate understanding of, and agreement with, the discharge recommendations, medications, and plan. Vital Signs: BP: 142/67 (07/29 1100) Temp: 97.5 ?F (36.4 ?C) (07/29 1100) Pulse: 58 (07/29 1100) Resp: 18 (07/29 849) SpO2: 96 % (07/29 1100) FiO2 (%): 21 % (07/29 849) O2 Flow Rate (L/min): 0 L/min (07/29 849) Cardiac (WDL): Exceptions to WDL (07/28 1444) Cardiac Rhythm: Sinus bradycardia;Normal sinus rhythm (07/29 736) Temp (48hrs), Av.2 ?F (36.8 ?C), Min:97.5 ?F (36.4 ?C), Max:99 ?F (37.2 ?C) I/O: Intake/Output Summary (Last 24 hours) at 07/29/2022 1408 Last data filed at 07/28/2022 1939 Gross per 24 hour Pmshzm491 ml Output- Syh953 ml Physical Exam: GEN: AANDOx3, moderately obese, NAD Neuro:No focal deficits LUNG: CTAB, good effort HEART: RRR, s1s2nl, no m/g/r (more content not included)... [facility] Clinical Note 07-29-2022 Note Date & Type Note Facility 07-29-2022 Note Encounter Department : [facility] Progress Notes by Sharon Lares APRN-GERSON at 07/29/2022 11:38 AM Author: Sharon Sarwat English, RECEIVABLE CLERK-CNPService: Internal MedicineAuthor Type: Nurse Practitioner Filed: 07/29/2022 11:39 AMDate of Service: 07/29/2022 11:38 AMStatus: Signed Boiler Assistant Operator: ROBERTO Covington (Nurse Practitioner) Patient is in sinus rhythm at 64 bpm. No complaints of any further chest pain. Labs stable. Patient is medically stable for discharge but openly expressing suicidal ideations. Psychiatry and behavior health assessment team consults placed. Patient will require a sitter. [facility] Clinical Note 07-29-2022 Note Date & Type Note Facility 07-29-2022 Note Encounter Department : [facility] Progress Notes by Julián Zepeda RN at 07/29/2022 10:06 AM Author: SUBHA Martelervice: Nursing HandoffAuthor Type: Registered Nurse Filed: 07/29/2022 10:07 AMDate of Service: 07/29/2022 10:06 AMStatus: Signed Boiler Assistant Operator: Julián Zepeda RN (Registered Nurse) Sender:Julián Zepeda Recipient:Ambrosio Zavaletash Time Sent:Jul 29 2022 10:04AM EST Message:[[phone]] Anna Pereyra, Chest Pain. Patient making concerning statements, wanting his life to be over and how he can't go on d/t his recent incarceration, losing his to divorce, losing his job, house, family, AND prospect of facing more nursing home time. This nurse asked pt if he is suicidal or has a plan. Pt said he doesn't want to answer that honestly for fear of what may happen. Psych? PADMA? Please advise., Callback Number [phone] DELIVERED:(Jul 29 2022 10:04AM EST) READ:(Jul 29 2022 10:04AM EST) REPLIED:Can get both let Sharon CM know she will be there (Jul 29 2022 10:05AM EST) [facility] Clinical Note 07-29-2022 Note Date & Type Note Facility 07-29-2022 Note Encounter Department : [facility] Progress Notes by Julián Zepeda RN at 07/29/2022 9:50 AM Author: SUBHA Martelervice: Nursing HandoffAuthor Type: Registered Nurse Filed: 07/29/2022 9:59 AMDate of Service: 07/29/2022 9:50 AMStatus: Signed Boiler Assistant Operator: Julián Zepeda RN (Registered Nurse) Upon rounding on patient, patient expressed feelings of being depressed and hopeless. Pt stated he's lost his to divorce, lost his family, lost his job due to his recent incarceration, and his house is being foreclosed on. Patient stated that if he gets sentenced to anymore nursing home time at his court date tomorrow he'll want to just disappear and he wants it all to end. Pt stated things like, I can't go on, referring to being back in nursing home. He stated, you can only fit so much in a 5 lb bucket and my bucket is full. This nurse asked patient if he has any suicidal ideations, a plan to do himself harm, or if he wants to take his life. Patient stated he did not want to answer that question truthfully out of fear of what might happen. Alerted nursing supervisor wet end and alerted Dr. Acharya through [employer]. [facility] History and physical note 07-28-2022 Note Date & Type Note Facility 07-28-2022 Note Encounter Department : [facility] HANDP by Isma Gallegos MD at 07/28/2022 9:09 PM Author: RIN Boothervice: HospitalistAuthor Type: Physician Filed: 07/28/2022 9:37 PMDate of Service: 07/28/2022 9:09 PMStatus: Signed Boiler Assistant Operator: Isma Gallegos MD (Physician) History and Physical ASSESSMENT AND PLAN: -- Chest Pain: Atypical in nature. Does have significant risk factors of diabetes, hypertension, hyperlipidemia and longtime tobacco use disorder. -Admit to MedSurg on telemetry monitoring -Rule out for ACS with serial cardiac enzymes -Consider outpatient restratification with stress testing when he is no longer incarcerated -Continue medical management with control of hypertension and diabetes as below -Aspirin and statin --Atrial fibrillation: Has not been anticoagulated. We will start Eliquis. We will rate control with beta-cole and monitor closely. -Start Eliquis 5 mg p.o. twice daily -Start Toprol-XL 50 mg p.o. daily --Diabetes mellitus type 2: Hold oral hypoglycemics (glyburide). Treat with sliding scale insulin and adjust as needed based on total daily dose. -- Essential hypertension: At baseline is on Norvasc and Cozaar. Stop Norvasc and start beta-cole with Toprol-XL 50 mg -Daily renal panel --COPD: At baseline is on Spiriva and albuterol. Continue both. --Anxiety: Is on Vistaril and bupropion at baseline, continue -- Morbid obesity: Body mass index is 32.89 kg/m?.. Adversely affecting all of his medical care. Recommend high protein, high healthy fat, low carbohydrate-based diet. -- Prophylaxis. Lovenox x1 then Eliquis. No indication for GI prophylaxis Full Code. No barriers to communication exist. I have personally reviewed the patient's medication list. Isma Gallegos MD 07/28/2022 9:09 PM This chart entry has been completed using [employer]. While attempts have been made to ensure accuracy, certain words and phrases may not be entered as intended. CHIEF COMPLAINT Chief Complaint Patient presents with -Chest Pain HPI History obtained from the patient and review of the chart Anna Pereyra is a 72 y.o. male with a history of atrial fibrillation and COPD and diabetes who presents with chest pain. Patient was in his usual state of health until 3 days ago. That point time he had gradual onset of intermittent chest pain. He has most recently been incarcerated and was unable to access all of his medications. He states that he does not know any exacerbating or relieving factors. States the pain is sharp and is on the left side of his chest. Is not clear of any radiation. He seems frustrated when asked to detail the chest pain more in depth. REVIEW OF SYSTEMS Patient declines review of systems Review of systems otherwise negative. PAST MEDICAL HISTORY Past Medical History: DiagnosisDate -Atrial fibrillation (HCC) -COPD (chronic obstructive pulmonary disease) (HCC) -Diabetes mellitus (HCC) -Hyperlipidemia -Hypertension FAMILY HISTORY History reviewed. No pertinent family history. SOCIAL HISTORY Social History Socioeconomic History -Marital status: Tobacco Use -Smoking status:Every Day Packs/day:0.50 Types:Cigarettes -Smokeless tobacco:Never Vaping Use -Vaping Use:Never used Substance and Sexual Activity -Alcohol use:Not Currently -Drug use:Not Currently -Sexual activity:Not Currently SURGICAL HISTORY History reviewed. No pertinent surgical history. CURRENT MEDICATIONS No outpatient medications have been marked as taking for the 07/28/22 encounter (Hospital Encounter). ALLERGIES No Known Allergies PHYSICAL EXAM VITAL SIGNS: ED Triage Vitals BP109/27/21 2252455/84 Temp109/27/21 475035.7 ?F (37.1 ?C) Pulse07/28/22 548010 Resp07/28/22 874696 QwK70307/28/22 9402004 % Tapogi93/14/22 1103318 lb (106.6 kg) [place] Coma Scale Score07/28/22 847577 BMI (Calculated)07/28/22 544365.8 Constitutional: Well developed, obese NAD HENT: Normocephalic, Atraumatic, Bilateral external ears normal, Oropharynx moist, Nose normal. Eyes: PERRLA, EOMI, Conjunctiva normal, No discharge. No scleral icterus. Neck: Normal range of motion, No tenderness, Supple, Lymphatic: No lymphadenopathy noted. Cardiovascular: Regular rate and rhythm, normal S1-S2, No murmurs, gallops or rubs. Thorax AND Lungs: Decent air exchange with some significant coughing with deep breathing, No respiratory distress, No wheezing Abdomen: Soft, NT/ND, No pulsatile masses, bowel sounds normal, no rebound or guarding Skin: Warm, Dry, No erythema, No rash. Back: No tenderness, No CVA tenderness. Extremities: No edema, No tenderness, No cyanosis, No clubbing. Musculoskeletal: Good range of motion in all major joints. No tenderness to palpation or major deformities noted. Neurologic: Alert AND oriented x 3, Normal motor function, Normal sensory function, No focal deficits n (more content not included)... [facility] Clinical Note 07-28-2022 Note Date & Type Note Facility 07-28-2022 Note Encounter Department : [facility] Progress Notes by ROBERTO Martinez at 07/28/2022 5:22 PM Author: ROBERTO MartinezService: Internal MedicineAuthor Type: Nurse Practitioner Filed: 07/28/2022 5:28 PMDate of Service: 07/28/2022 5:22 PMStatus: Signed Boiler Assistant Operator: ROBERTO Martinez (Nurse Practitioner) Admission note 72-year-old male past medical history atrial fibrillation, COPD, diabetes mellitus type 2, hyperlipidemia, hypertension presented to the emergency department with complaints of chest pain. Patient was seen and evaluated in the emergency department several days ago for chest pain and tachycardia. He was found to be in atrial fibrillation given 2 doses of diltiazem and converted to normal sinus rhythm. He was discharged home with recommendation to follow-up outpatient. Patient came back to the hospital today in police custody with chest pain and shortness of breath. Patient is not currently anticoagulated. Patient was found to be in normal sinus rhythm troponin negative x2. ER did contact on-call cardiology Dr. White for medication recommendations who recommended that patient was admitted at [facility] overnight for serial troponin. He did recommend discontinuing patient's amlodipine and starting him on 120 mg Cardizem daily. He also recommended giving therapeutic Lovenox at this time and discharging patient home on Eliquis with outpatient follow-up with cardiology. ER ordered patient oral Cardizem and therapeutic Lovenox which patient had not received at time of admission. Patient is currently stable at this time. General admission orders have been placed and patient will be seen and evaluated by stained glass joiner attending and HPI will be completed at that time [facility] Summary Purpose Family History No Family History Records FoundNo Family History Records Found Advance Directives No Advanced Directives Records FoundNo Advanced Directives Records Found Additional Source Comments (unrecognized sect ion and content) No Status Records FoundNo Status Records Found INFORMATION SOURCE (unrecogn ized section and content) DATE CREATED AUTHOR AUTHOR'S ORGANIZ ATION 03/27/2023 [facility] FOR RECORDS PERTAINING TO PATIENTS WHO ARE OR HAVE BEEN ENROLLED IN A CHEMICAL DEPENDENCY/SUBSTANCEABUSE PROGRAM, SOME INFORMATION MAY BE OMITTED. This clinical summary was aggregated from multiple sources. Caution should be exercised in using it in the provision of clinical care. This summary normalizes information from multiple sources, and as a consequence, information in this document may materially change the coding, format and clinical context of patient data. In addition, data may be omitted in some cases. CLINICAL DECISIONS SHOULD BE BASED ON THE PRIMARY CLINICAL RECORDS. [facility] [employer] [facility]. provides no warranty or guarantee of the accuracy or completeness of information in this document.
--- OUTSIDE RECORDS SUMMARY | 2023-09-17 21:43 | XMS RPT_ITS | CCD ---
Author Name Unknown Address [address] [place] [address] Organization [facility] Care Team Providers Care Fire Control Assistant Name Role Phone BIAS, BALDEV LAZAR Attending [...] 2023 Emergency department patient visit BALDEV DENISE [facility] Start: 08-21-2022 End: 08-21-2022 ambulatory [facility] Start: 08-21-2022 Encounter for genera l adult medical examination without abnormal findings [facility] Start: 07-28-2022 End: 07-29-2022 ambulatory ANGELA MARSHALLOHKOBY [facility] Start: 07-28-2022 Emergency department patient visit LARY MURRAY [facility] Start: 07-25-2022 End: 07-25-2022 Emergency department patient visit Kiah Montejo [facility] Payers Date Payer Category Payer Unknown [id number] 2.16. [id number] 1950 Unknown [id number] 2.16. [id number] 1950 Unknown [id number] 2.16. [id number] 1950 Unknown [id number] 2.16. [id number] 1950 Unknown [id number] 2.16. [id number] 1950 Unknown [id number] 2.16. [id number] 1950 Unknown [id number] 2.16. [id number] 1950 Unknown [id number] 2.16. [id number] 1950 Unknown [id number] 2.16. [id number] 1950 Unknown [id number] 2.16. [id number] Medicare [id number] Unknown [id number] Clinical Note 08-21-2022 Note Date & Type Note Facility 08-21-2022 Note Encounter Department : [facility] Progress Notes by Reji García MD at 08/21/2022 1:00 PM Author: RIN Pichardoervice: -Author Type: Physician Filed: 08/25/2022 7:49 AMEncounter Date: 08/21/2022tatus: Signed Keno Terminal Operator: Reji García MD (Physician) I have [...] visit and participated in the overall management. [facility] Clinical Note 08-21-2022 Note Date & Type Note Facility 08-21-2022 Note Encounter Department : [facility] Progress Notes by Sterling Caballero MD at 08/21/2022 1:00 PM Author: RIN Magdalenoervice: -Author Type: Resident Filed: 08/23/2022 11:37 AMEncounter Date: 08/21/2022tatus: Signed Keno Terminal Operator: Sterling Caballero MD (Resident) Chief Complaint Patient presents with -Diabetes -Hypertension -Hyperlipidemia HPI: Anna Pereyra 72 y.o. male w/PMH of T2DM, Paroxysmal Afib, COPD, HLPD, nicotine use disorder new to our care and present refills on medications. 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 [place] Wears seatbelt? Yes Eye exams regularly: Last [...] DIRECTED No c (more content not included)... [facility] Clinical Note 08-14-2022 Note Date & Type Note Facility 08-14-2022 Note Care management upda te noted. He is no longer patient at our office. Dismissal letter was sent by certified mail 06/24/22. Provider Locations Clinical Note 07-29-2022 Note Date & Type Note Facility 07-29-2022 Note Encounter Department : [facility] Progress Notes by Julián Zepeda RN at 07/29/2022 2:26 PM Author: SUBHA Martelervice: Nursing HandoffAuthor Type: Registered Nurse Filed: 07/29/2022 2:27 PMDate of Service: 07/29/2022 2:26 PMStatus: Signed Keno Terminal Operator: Julián Zepeda RN (Registered Nurse) Eliquis card, education on Eliquis, and discharge instructions provided to patient by this nurse. Patient verbalized and demonstrated instructions. [facility] Clinical Note 07-29-2022 Note Date & Type Note Facility 07-29-2022 Note Encounter Department : [facility] Discharge Summary by ROBERTO Covington at 07/29/2022 2:08 PM Author: ROBERTO CovingtonService: Internal MedicineAuthor Type: Nurse Practitioner Filed: 07/29/2022 2:14 PMDate of Service: 07/29/2022 2:08 PMStatus: Attested Keno Terminal Operator: ROBERTO Covington (Nurse Practitioner)Cosigner: Ambrosio Acharya [...] the patient. He understands bleeding risks including TIRE CHANGER AIRCRAFT bleed/ in case of major head trauma. He has agreed to proceed with anticoagulation. This is a shared decision making. Initially patient had verbalized some suicidal concerns/ideations to nursing staff but currently during my interview vehemently denies saying that. He apparently was stressed out about his situation regarding his detention time and other other family issues but [...] suicidal. He says that they misunderstood him. [facility] has been involved and he also verbalized no suicidal ideation to [facility] as well. We will discharge him with close outpatient follow-up with PCP. Electronically signed by: Ambrosio Acharya MD 07/29/2022 2:52 PM Discharge Summary Name: Anna Pereyra : [id number] Admitted: 07/28/2022ischarged: 07/29/22 Attending Physician: Ambrosio Acharya MD Dear Dr. Vivi Vera MD, It was my pleasure to take care of your patient, Anna Pereyra, during his recent hospitalization at [facility]. Please see the following discharge summary for his summary of care. Please do not hesitate to contact me through my office if you have any questions. Thank you so much. Sharon Lares, PETROLEUM TRANSPORT DRIVER-IT SECURITY MANAGER [facility], [address] [address] Discharge Diagnoses: New Onset PAF Chest Pressure 2/2 AF Anxiety/Depression NIDDM II Essential HTN COPD Class I obesity, BMI 32.47 kg per metered squared Hospital Course: Mr. Pereyra was admitted from the [facility] with chest pressure. He was ruled out [...] at 07/28/2022 1939 Gross per 24 hour Hgeihb676 ml Output- Gyx981 ml Physical Exam: GEN: AANDOx3, moderately obese, NAD Neuro:No focal deficits LUNG: CTAB, good effort HEART: RRR, s1s2nl, no m/g/r (more content not included)... [facility] Clinical Note 07-29-2022 Note Date & Type Note Facility 07-29-2022 Note Encounter Department : [facility] Progress Notes by Sharon Lares APRN-GERSON at 07/29/2022 11:38 AM Author: Sharon Sarwat Zambian, PETROLEUM TRANSPORT DRIVER-CNPService: Internal MedicineAuthor Type: Nurse Practitioner Filed: 07/29/2022 11:39 AMDate of Service: 07/29/2022 11:38 AMStatus: Signed Keno Terminal Operator: ROBERTO Covington (Nurse Practitioner) Patient is in sinus rhythm at 64 bpm. No complaints of any further chest pain. Labs stable. Patient is medically stable for discharge but openly expressing suicidal ideations. Psychiatry and behavior health assessment team consults placed. Patient will require a sitter. [facility] Clinical Note 07-29-2022 Note Date & Type Note Facility 07-29-2022 Note Encounter Department : [facility] Progress Notes by Julián Zepeda RN at 07/29/2022 10:06 AM Author: SUBHA Martelervice: Nursing HandoffAuthor Type: Registered Nurse Filed: 07/29/2022 10:07 AMDate of Service: 07/29/2022 10:06 AMStatus: Signed Keno Terminal Operator: Julián Zepeda RN (Registered Nurse) Sender:Julián Zepeda Recipient:Ambrosio Zavaletash Time Sent:Jul 29 2022 10:04AM EST Message:[[id number]] Anna Pereyra, Chest Pain. Patient making concerning statements, wanting his life to be over and how he can't go on d/t his recent incarceration, losing his to divorce, losing his job, house, family, AND prospect of facing more fpc time. This nurse asked pt if he is suicidal or has a plan. Pt said he doesn't want to answer that honestly for fear of what may happen. Psych? PADMA? Please advise., Callback Number [phone] DELIVERED:(Jul 29 2022 10:04AM EST) READ:(Jul 29 2022 10:04AM EST) REPLIED:Can get both let Sharon CM know she will be there (Jul 29 2022 10:05AM EST) [facility] Clinical Note 07-29-2022 Note Date & Type Note Facility 07-29-2022 Note Encounter Department : [facility] Progress Notes by Julián Zepeda RN at 07/29/2022 9:50 AM Author: SUBHA Martelervice: Nursing HandoffAuthor Type: Registered Nurse Filed: 07/29/2022 9:59 AMDate of Service: 07/29/2022 9:50 AMStatus: Signed Keno Terminal Operator: Julián Zepeda RN (Registered Nurse) Upon rounding on patient, patient expressed feelings of being depressed and hopeless. Pt stated he's lost his to divorce, lost his family, lost his job due to his recent incarceration, and his house is being foreclosed on. Patient stated that if he gets sentenced to anymore fpc time at his court date tomorrow he'll want to just disappear and he wants it all to end. Pt stated things like, I can't go on, referring to being back in fpc. He stated, you can only fit so much in a 5 lb bucket and my bucket is full. This nurse asked patient if he has any suicidal ideations, a plan to do himself harm, or if he wants to take his life. Patient stated he did not want to answer that question truthfully out of fear of what might happen. Alerted nursing account supervisor and alerted Dr. Acharya through [employer]. [facility] History and physical note 07-28-2022 Note Date & Type Note Facility 07-28-2022 Note Encounter Department : [facility] HANDP by Isma Gallegos MD at 07/28/2022 9:09 PM Author: RIN Boothervice: HospitalistAuthor Type: Physician Filed: 07/28/2022 9:37 PMDate of Service: 07/28/2022 9:09 PMStatus: Signed Keno Terminal Operator: Isma Gallegos MD (Physician) History and [...] This chart entry has been completed using [email or web address]. While attempts have been made [...] EXAM VITAL SIGNS: ED Triage Vitals BP109/27/21 1011155/84 Temp109/27/21 847994.7 ?F (37.1 ?C) Pulse07/28/22 074226 Resp07/28/22 843864 OpA62507/28/22 1075057 % Sjzozp72/14/22 8862138 lb (106.6 kg) [place] Coma Scale Score07/28/22 405111 BMI (Calculated)07/28/22 527944.8 Constitutional: Well developed, obese NAD HENT: Normocephalic, [...] focal deficits n (more content not included)... [facility] Clinical Note 07-28-2022 Note Date & Type Note Facility 07-28-2022 Note Encounter Department : [facility] Progress Notes by ROBERTO Martinez at 07/28/2022 5:22 PM Author: ROBERTO MartinezService: Internal MedicineAuthor Type: Nurse Practitioner Filed: 07/28/2022 5:28 PMDate of Service: 07/28/2022 5:22 PMStatus: Signed Keno Terminal Operator: ROBERTO Martinez (Nurse Practitioner) Admission note [...] who recommended that patient was admitted at [facility] overnight for serial troponin. He did recommend [...] patient will be seen and evaluated by retail shift manager attending and HPI will be completed at that time [facility] Summary Purpose Family History No Family History Records FoundNo Family History Records Found Advance Directives No Advanced Directives Records FoundNo Advanced Directives Records Found Additional Source Comments (unrecognized sect ion and content) No Status Records FoundNo Status Records Found INFORMATION SOURCE (unrecogn ized section and content) DATE CREATED AUTHOR AUTHOR'S ORGANIZ ATION 03/27/2023 [facility] FOR RECORDS PERTAINING TO PATIENTS WHO ARE [...] BE BASED ON THE PRIMARY CLINICAL RECORDS. [facility] [employer] [facility]. provides no warranty or guarantee of the accuracy or completeness of information in this document.
[2023-09-17 21:44] LABS: Magnesium 2.2 mg/dL (1.6-2.6)
[2023-09-17] MEDS: Enoxaparin 120 MG/0.8 ML Syringe SC (22:56)
[2023-09-17] MEDS: guaiFENesin 1,200 MG Tablet 1200 MG PO (22:57)
[2023-09-17] MEDS: Famotidine 200 MG/20 ML MDV 20 MG in 0.9% Normal Saline (Pres. free 8 ML 300 MG IV (22:59)
[2023-09-17] MEDS: Diltiazem 125 MG in Dextrose 5%-Water (100mL Bag) 100 ML CONT INF (23:04)
[2023-09-17] MEDS: Gabapentin 100 MG Capsule PO (23:10)
[2023-09-18] VITALS (30 sets, daily range): BP systolic 88–154; BP diastolic 65–110; PULSE 38–126; RESP 12–24; TEMP 35.8–36.8; O2SAT 91–100; BMI 38.4
[2023-09-18 00:26] LABS: Allen Test Positive; Base Excess 1 mmol/L (-2 to +2); Bicarbonate 26.3 mmol/L (22-26); Blood Gas Specimen Type ART; Mode Not entered; O2 Delivery Device BiPAP; PEEP 10; PO2 75 mmHG (75-100); RR 12; SITE R Radial; SO2 94 % (95-99); Total Carbon Dioxide 28 mmol/L; pCO2 46.1 mmHg (35-45); pH 7.36 (7.35-7.45)
--- NOTE | 2023-09-18 00:32 | NURSING ---
abg results sent to dr baeza for evaluation. responded back Looks ok
--- NOTE | 2023-09-18 02:03 | VDLE_ITS ---
Reason For Study: Elevated D Dimer RIGHT LEFT CFV is patent and compressible. CFV is patent and compressible. FV is patent and compressible. FV is patent and compressible. POP V is patent and compressible. POP V is patent and compressible. T/P Trunk is compressible. T/P Trunk is compressible. PTV is compressible. PTV is compressible. RT PerV is compressible. RT PerV is compressible. Procedure This is a venous duplex using B-mode, color flow and spectral Doppler. Exam performed portable in patient room. The exam was abbreviated due to the COVID 19 protocol. The study was technically difficult due to patient positioning. Limited views were obtained. A preliminary report was called and/or faxed to [employer] packaging sales. VL/Venous Duplex US - Kareem Extrem Interpretation Summary No evidence for acute deep venous thrombosis bilateral lower extremities with p atent and compressible bilateral great saphenous veins. Covid abbreviated, technically di fficult exam Ordering Physician: Donn Tirado Referring Physician: N/A Performed By: Vern Angel RVT
[2023-09-18 02:17] LABS: M R Staph aureus DNA By PCR Negative (Negative); Probe Check PASS; Specimen Processing Control PASS
--- NOTE | 2023-09-18 02:30 | NURSING ---
Discussed leg swelling with dr baeza states to hold off on scd's for now and get ultrasound in am.
--- NOTE | 2023-09-18 05:31 | NURSING ---
Dr Tirado was called re cxr states ok to do portable.
--- NOTE | 2023-09-18 05:35 | RAD_ITS ---
INDICATION: Pneumonia-486 EXAMINATION/TECHNIQUE: X-RAY - XR Chest 1 View AP portable. 5:39 AM COMPARISON: 09/17/2023 FINDINGS: LINES/DEVICES: None. LUNGS: Small bilateral pleural effusions and opacities in the lung bases not significantly changed. No pneumothorax. MEDIASTINUM: Unremarkable. CARDIAC SILHOUETTE: Not enlarged. BONES AND SOFT TISSUES: No acute abnormalities. RAD/Chest 1 View (Portable) IMPRESSION: No change small bilateral pleural effusions and bibasilar airspace disease. Electronically Signed: An aLuisa Ríos MD at 6:31 EST ,
[2023-09-18] MEDS: Gabapentin 100 MG Capsule PO ×3 (07:02→21:21)
[2023-09-18] MEDS: Diltiazem 125 MG in Dextrose 5%-Water (100mL Bag) 100 ML 15 MG CONT INF (08:25)
[2023-09-18 08:40] LABS: Hemoglobin A1c 7.5 % (3.8-5.6)
[2023-09-18] MEDS: Famotidine 200 MG/20 ML MDV 20 MG in 0.9% Normal Saline (Pres. free 8 ML 300 MG IV (08:42)
[2023-09-18] MEDS: 0.9% Saline Lock 10 ML Syringe IV ×2 (08:43→09:59)
[2023-09-18] MEDS: Sertraline 50 MG Tablet PO (08:43)
[2023-09-18] MEDS: Ascorbic Acid 500 MG Tablet 1000 MG PO (08:43)
[2023-09-18] MEDS: Losartan Potassium 50 MG Tablet PO (08:44)
[2023-09-18] MEDS: Cholecalciferol (Vit D3) 125 MCG CAPSULE (5,000 UNITS) PO (08:44)
[2023-09-18] MEDS: Zinc Sulfate 50 mg zinc (220 mg) ORAL capsule PO (08:44)
[2023-09-18] MEDS: guaiFENesin 1,200 MG Tablet 1200 MG PO ×2 (08:44→21:21)
[2023-09-18] MEDS: MethylPREDNISolone 125 MG/2 ML Vial 60 MG IV (08:50)
[2023-09-18] MEDS: Enoxaparin 120 MG/0.8 ML Syringe SC (08:55)
--- NOTE | 2023-09-18 09:01 | PCM.PN.HOSP ---
Reason for Visit Reason for Visit: Shortness of breath/wound check Subjective Subjective Mr. Ledesma is a 73-year-old male who presented to the emergency department at [facility] on 09/17/2023 with a blister in his right tibial root region for wound check. He reported it started hurting yesterday and felt like he had a nail in his tibia but upon presentation it did not hurt at all. He had developed a mildly erythematous pustule. He denies any known trauma. He reports he has a history of atrial fibrillation but has been out of his medications for his A-fib for several months because he could not afford them. He reported that he was previously on something for heart rate control and Eliquis but had not been taking either. He did not have any health insurance but has some now. He has not established with a primary care physician. He also indicated he became quite ill over the last 2 weeks and started with chills and a cough with sputum he had not had fever that he knows of and denies any nausea or vomiting. He stated he was unable to shake the cold that he had. He had never been tested for anything and had not seen anybody with regards to this. He denied any chest pain but he was complaining of some shortness of breath. He does not typically require oxygen but on presentation his oxygen saturations were 86% on room air. The patient is an everyday smoker. His COVID-19 test was positive and on chest x-ray he had evidence of bibasilar infiltrates that were suspicious for bacterial pneumonia superinfection compounded by acute exacerbation of COPD with acute hypoxic respiratory failure that required BiPAP. I suspect that this all triggered his atrial fibrillation given that he had not been medicated. He was placed on IV Cardizem and admitted to PCU. Cultures have been obtained and he was placed on broad-spectrum antibiotics to cover for community-acquired pneumonia. He remains on BiPAP this morning but his oxygen saturations are 99%. Will try to wean the high flow. His BNP was also found to be elevated at 373.6. Asks me when he can go home when I walked in the room. I indicated to him that I was not sure at this time but I would guess the earliest possible time he would be able to go home would be on Thursday but did not guarantee anything. He voiced understanding. He states he now has insurance and should be able to get the medications he needs. He has not followed up with a primary care physician or assistant controller in some time. He states his legs have been getting more swollen and he feels like he is gained weight but not clear how much. Objective Data Objective Data Vital Signs: Vital Signs Temp Pulse Resp BP Pulse Ox O2 Del Method O2 Flow Rate 97.6 F L 61 20 H 112/65 99 Bi-pap 3.5 09/18/23 08:35 09/18/23 08:35 09/18/23 08:35 09/18/23 08:35 09/18/23 08:35 09/18/23 08:35 09/17/23 23:04 FiO2 30 09/18/23 08:07 Oxygen Flow Rate (L/min) 3.5 Oxygen Delivery Method Bi-pap Weight: 118 kg Body Mass Index (BMI) 38.4 Intake & Output: Intake and Output for Last 24 Hours 09/16/23 09/17/23 09/18/23 23:59 23:59 23:59 Intake Total 702.16 / 904.66 441.09 / 441.09 Output Total 850 / 1000 350 / 350 Balance -147.84 / -95.34 91.09 / 91.09 Lab / Micro Data 09/18/23 09:20 09/18/23 09:20 Labs: Laboratory Results - last 24 hr 09/17/23 17:00: WBC 12.9 H, RBC 5.86, Hgb 14.8, Hct 50.3, MCV 85.8, MCH 25.3 L, MCHC 29.4 L, RDW Std Deviation 54.3 H, RDW Coeff of Bettie 18.2 H, Plt Count 187, MPV 10.0, Immature Gran % (Auto) 0.500, Neut % (Auto) 79.5 H, Lymph % (Auto) 12.5 L, [place] % (Auto) 5.5, Eos % (Auto) 1.4, Baso % (Auto) 0.6, Absolute Neuts (auto) 10.3 H, Absolute Lymphs (auto) 1.61, Nucleated RBC % 0, PT 15.5 H, INR 1.2, APTT 28.3, D-Dimer Quant (PE/DVT) 1.52 H*, Sodium 142, Potassium 4.3, Chloride 108 H, Carbon Dioxide 30.0, Anion Gap 4 L, BUN 25 H, Creatinine 1.09, Est GFR (MDRD) Af Amer 85, Est GFR (MDRD) Non-Af 71, BUN/Creatinine Ratio 22.9 H, Glucose 167 H, Hemoglobin A1c 7.5 H, Lactic Acid 1.2, Calcium 9.1, Magnesium 2.2, Total Bilirubin 0.80, AST 16, ALT 21, Alkaline Phosphatase 94, B-Natriuretic Peptide 373.6 H, Total Protein 6.9, Albumin 2.9 L, Globulin 4.0, Albumin/Globulin Ratio 0.7 L 09/17/23 18:01: Urine Color Yellow, Urine Clarity Clear, Urine pH 5.0, Ur Specific [place] 1.030, Urine Protein 100 H, Urine Glucose (UA) Normal, Urine Ketones Negative, Urine Occult Blood Negative, Urine Nitrite Negative, Urine Bilirubin Negative, Urine Urobilinogen 1 H, Ur Leukocyte Esterase 25 H, Urine RBC 0 SEEN, Urine WBC 0-5 SEEN, Ur Squamous Epith Cells 0 SEEN, Urine Bacteria 0 SEEN, Urine Mucus 0 SEEN 09/17/23 23:30: MRSA (PCR) Negative 09/18/23 07:50: WBC Cancelled, Corrected WBC Cancelled, RBC Cancelled, Hgb Cancelled, Hct Cancelled, MCV Cancelled, MCH Cancelled, MCHC Cancelled, RDW Std Deviation Cancelled, RDW Coeff of Bettie Cancelled, Plt Count Cancelled, MPV Cancelled, Immature Gran % (Auto) Cancelled, Neut % (Auto) Cancelled, Lymph % (Auto) Cancelled, [place] % (Auto) Cancelled, Eos % (Auto) Cancelled, Baso % (Auto) Cancelled, Absolute Neuts (auto) Cancelled, Absolute Lymphs (auto) Cancelled, Total Counted Cancelled, Neutrophils % (Manual) Cancelled, Band Neutrophils % Cancelled, Lymphocytes % (Manual) Cancelled, Monocytes % (Manual) Cancelled, Eosinophils % (Manual) Cancelled, Basophils % (Manual) Cancelled, Metamyelocytes % Cancelled, Myelocytes % Cancelled, Promyelocytes % Cancelled, Blast Cells % Cancelled, Plasma Cell % (Manual) Cancelled, Other Cells % Cancelled, Nucleated RBC % Cancelled, Nucleated RBCs/100 WBC Cancelled, Differential Comment Cancelled, Diff Path Review Cancelled, Hypersegmented Neuts Cancelled, Atypical Lymphocytes Cancelled, Reactive Lymphocytes Cancelled, Smudge Cells Cancelled, Toxic Granulation Cancelled, Toxic Vacuolation Cancelled, Dohle Bodies Cancelled, [place]ila Rods Cancelled, Platelet Estimate Cancelled, Plt Morphology Comment Cancelled, RBC Morphology Cancelled 09/18/23 07:50: RBC Morphology Cancelled, Polychromasia Cancelled, Hypochromasia Cancelled, Poikilocytosis Cancelled, Basophilic Stippling Cancelled, Anisocytosis Cancelled, Microcytosis Cancelled, Macrocytosis Cancelled, Spherocytes Cancelled, Sickle Cells Cancelled, Target Cells Cancelled, Tear Drop Cells Cancelled, Ovalocytes Cancelled, Stomatocytes Cancelled, [place] Bodies Cancelled, [place] Cells Cancelled, Bite Cells Cancelled, Crenated Cell Cancelled, Acanthocytes (Spur) Cancelled, Rouleaux Cancelled, Schistocytes Cancelled, Sodium Cancelled, Potassium Cancelled, Chloride Cancelled, Carbon Dioxide Cancelled, Anion Gap Cancelled, BUN Cancelled, Creatinine Cancelled, Estim Creat Clear Calc Cancelled, Est GFR (MDRD) Af Amer Cancelled, Est GFR (MDRD) Non-Af Cancelled, BUN/Creatinine Ratio Cancelled, Glucose Cancelled, Calcium Cancelled, Phosphorus Cancelled, Magnesium Cancelled, Total Bilirubin Cancelled, AST Cancelled, ALT Cancelled, Alkaline Phosphatase Cancelled, Total Protein Cancelled, Albumin Cancelled, Globulin Cancelled, Albumin/Globulin Ratio Cancelled, Triglycerides Cancelled, Cholesterol Cancelled, LDL Cholesterol Cancelled, VLDL Cholesterol Cancelled, HDL Cholesterol Cancelled, TSH Cancelled Micro: Microbiology 09/17/23 23:30 Urine, Clean Catch Legionella Antigen - Final 09/17/23 23:30 Urine, Clean Catch Streptococcus pneumoniae Antigen (M - Final 09/17/23 17:27 Mucosa - Nose SARS-CoV-2, Influenza & RSV (PCR) - Final SARS-CoV-2 (COVID 19) ABG Data ABG results: ABG 09/17/23 09/18/23 19:36 00:21 Specimen Type ART ART Sample Site L Radial R Radial pH 7.39 7.36 Bicarbonate Actual 27.7 H 26.3 H Total CO2 29 28 Base Excess 3 H 1 O2 Saturation 92 L 94 L O2 % 2.0 40.0 ABG pCO2 46.0 H 46.1 H ABG pO2 65 L 75 Gennaro Test Positive Positive Respiration Rate 12 O2 Delivery Device Cannula BiPAP Vent Mode Not entered Not entered Tidal Volume 450.0 POC PEEP 10 Clinical Comments Radiography Diagnostic Testing: Radiology Impression Chest X-Ray 09/17/23 17:25 IMPRESSION: 1. Bibasilar atelectasis versus superimposed interstitial infiltrate particularly at LEFT lung base. 2. Bilateral effusions. 3. No congestive failure. Electronically Signed: Demario Alva MD at 17:53 EST , Chest CTA 09/17/23 18:21 IMPRESSION: undefined Chest X-Ray 09/18/23 05:35 IMPRESSION: No change small bilateral pleural effusions and bibasilar airspace disease. Electronically Signed: Ana Luisa Ríos MD at 6:31 EST , Assessment & Plan Assessment/Plan (1) Medical non-compliance: (2) Chronic atrial fibrillation with rapid ventricular response: (3) Acute exacerbation of COPD with asthma: (4) Bacterial pneumonia: (5) COVID-19: (6) Cardiomyopathy: PLAN: Plan Acute hypoxic respiratory failure secondary to acute COVID-19 infection with possible superimposed bacterial pneumonia/acute heart failure type unknown -Cultures are pending -Added sputum induction to hopefully obtain sputum culture -Continue ceftriaxone and azithromycin -Add remdesivir--> day 1 of 5 -Transition Solu-Medrol to Decadron 6 mg daily x 10 days--> day 1 of 10 -Add scheduled DuoNebs -As needed albuterol -Continue Mucinex -Incentive spirometry -Acapella -BNP was elevated -Start Lasix drip -Every 8 BNP and potassium greater than 4 and magnesium greater than 2 - Fluid restricted diet -Sodium restricted diet -Echocardiogram shows severely depressed EF at 10 to 15% -see below -Wean BiPAP as able to Airvo or high flow nasal cannula/regular nasal cannula -Will need ambulatory pulse ox prior to discharge Paroxysmal atrial fibrillation with RVR -Patient RVR on presentation likely due to respiratory distress -Start Coreg 6.25 mg daily -Start Eliquis 5 mg p.o. twice daily and discontinue subcu Lovenox -Avoid calcium channel blockers with depressed EF -If patient reverts back to A-fib would start amiodarone with drip and bolus given prior to drip initiation -Echocardiogram is pending -TSH within normal limits Acute combined heart failure -Echocardiogram done on 09/18/2023 showed an EF of 10 to 15% with some severe global left ventricular systolic function and severe global right ventricular systolic dysfunction, mitral valve insufficiency that is moderate, severe tricuspid valve insufficiency and right ventricular systolic pressure of 49 mmHg, he was found to have severe biatrial dilation -Will start Coreg 6.25 mg daily -Continue losartan -Lasix as noted above -Will start SGLT2 inhibitor once more optimized from a heart failure standpoint--> I am hopeful that there is insurance coverage for this medication at discharge -Rate control with transition from Cardizem to metoprolol -Discussed case with cardiology and they will follow him with his outpatient--no current invasive or noninvasive testing with regards to his coronary arteries due to COVID-19 infection currently -Patient will also need pulmonary medicine follow-up after discharge as I highly suspect he has untreated obstructive sleep apnea Left lower extremity cellulitis -Continue antibiotics -MRSA PCR is negative -Wound care consultation -Lower extremity Dopplers pending to rule out DVT Hypertension -Patient had not been compliant with home medications -Will restart home losartan -Add Coreg -As needed hydralazine available HPL -cont statin -Check lipids DM-2 -Patient is diet controlled at baseline -Hemoglobin A1c is 7.5 -Will add Jardiance once patient is medically optimized from his heart failure -SSI and Accu-Cheks as ordered with steroid use History of diabetic neuropathy -Continue home gabapentin History of right carotid stenosis -No current issues -Continued outpatient follow-up AVELINA -Continue home hydroxyzine -Continue home lorazepam -Continue home Zoloft GI/DVT prophylaxis -Agree with GI prophylaxis but will transition to oral Protonix while on steroids -Transition full dose Lovenox to Eliquis CODE STATUS -Full code is verified on admission Charges/Coding Visit Charges Inpatient E&M: 25702 [facility] Hosp L3
--- NOTE | 2023-09-18 09:05 | ECHOCS_ITS ---
Reason For Study: Afib/Flutter Procedure This was a 2D Doppler, Color Flow transthoracic echocardiogram. The study was technically difficult. Limited views were obtained. Contrast injection was performed. Patient would not lay in optimal position and could not hold still due to anxiety and SOB. Exam performed portable in patient room. The exam was abbreviated due to the COVID 19 protocol. Left Ventricle Normal size and thickness. Severe global left ventricular systolic dysfunction. Estimated LVEF 10 to 15%. Unable to assess diastolic function based on available data. Right Ventricle Normal RV size. Severe global right ventricular systolic dysfunction. Atria There is severe biatrial dilatation. Mitral Valve Moderate mitral annular calcification. Moderate (2+) mitral valve insufficiency. Tricuspid Valve Severe (4+) tricuspid valve insufficiency. Right ventricular systolic pressure estimated to be 49 mmHg. Aortic Valve The aortic valve is not well visualized in the short axis view. Mild (1+) aortic valve insufficiency. Pulmonic Valve The pulmonic valve is not well visualized. Great Vessels The aortic root is not well visualized. The inferior vena cava is dilated. Pericardium/Pleural No pericardial effusion. Medication Diluted definity 2.5ml given slow IV push to enhance endocardial definition. MMode/2D Measurements & Calculations LVIDd: 5.7 cm IVSd: 1.1 cm LA dimension: 5.4 cm LVIDs: 5.1 cm LVPWd: 0.96 cm RVDd: 3.8 cm FS: 10.7 % LAV(MOD-sp4): 128.8 ml LVAd ap4: 36.4 cm2 SV(MOD-sp4): 36.1 ml LVLd ap4: 8.5 cm EDV(MOD-sp4): 128.6 ml EDV(sp4-el): 132.2 ml LVAs ap4: 28.8 cm2 LVLs ap4: 7.5 cm ESV(MOD-sp4): 92.5 ml ESV(sp4-el): 94.1 ml EF(MOD-sp4): 28.1 % EF(sp4-el): 28.8 % SV(sp4-el): 38.1 ml LA A4 area: 31.8 cm2 RA A4 area: 30.1 cm2 Doppler Measurements & Calculations MR max alina: 291.8 cm/sec TR max alina: 276.9 cm/sec MR max P.1 mmHg TR max P.2 mmHg ECHO/Echo Complete W/ Contrast Interpretation Summary Estimated LVEF 10 to 15%. Severe global LV systolic dysfunction Severe global right ventricular systolic dysfunction. Moderate (2+) mitral valve insufficiency. Severe (4+) tricuspid valve insufficiency. Right ventricular systolic pressure estimated to be 49 mmHg. Mild (1+) aortic valve insufficiency. There is severe biatrial dilatation. Ordering Physician: Noemy Mcintosh Performed By: Mikel White RCS
[2023-09-18 09:37] LABS: Absolute Lymphocyte Count 1.08 X10^3/uL (0.83-4.51); Absolute Neutrophil Count 10.1 X10^3/uL (2.0-7.7); Basophil# 0.04 X10^3/uL; Basophil% 0.3 % (0-1); Eosinophil# 0.01 X10^3/uL; Eosinophils% 0.1 % (0-5); Hematocrit 48.2 % (40-54); Hemoglobin 14.1 g/dL (13.0-16.5); Lymphocyte # 1.08 X10^3/ul (0.83-4.51); Lymphocyte % 9.1 % (19-41); Mean Corp Hgb Conc 29.3 g/dL (32-36); Mean Corpuscular Hgb 25.2 pg (27.0-32.0); Mean Corpuscular Volume 86.2 fL (80-94); Mean Platelet Vol. 10.9 fl (6.2-12.0); Monocyte# 0.51 X10^3/uL; Monocyte% 4.3 % (0-10); NRBC Flagged by Analyzer 0 % (0-5); Neutrophil % 85.6 % (47-70); Platelet Count 225 K/mm3 (150-450); RBC Distribution Width CV 18.1 % (11.6-14.6); RBC Distribution Width SD 54.4 fl (35.1-43.9); Red Blood Count 5.59 M/mm3 (4.6-6.2); White Blood Count 11.8 K/mm3 (4.4-11.0)
[2023-09-18] MEDS: Remdesivir 200 MG in 0.9% Normal Saline (250mL Bag) 210 ML 250 MG IV (09:59)
[2023-09-18] MEDS: Furosemide 40 MG/4 ML Vial IV (09:59)
[2023-09-18] MEDS: dexAMETHasone 4 MG Tablet 6 MG PO (10:00)
[2023-09-18] MEDS: Metoprolol Tartrate 50 MG Tablet PO (10:00)
[2023-09-18] MEDS: APIXABAN 5 MG TABLET PO ×2 (10:00→21:21)
[2023-09-18 10:03] LABS: ALB/GLOB Ratio 0.6 RATIO (0.9-2.4); AST(SGOT) 17 U/L (15-37); Alanine Aminotransfer ALT/SGPT 22 U/L (16-61); Albumin, Serum 2.5 g/dL (3.2-5.0); Alkaline Phosphatase 89 U/L (45-117); Anion Gap 5 (5-15); BUN 32 mg/dL (7-18); BUN/Creat Ratio 25.8 RATIO (10-20); Calcium,Total 8.6 mg/dL (8.5-10.1); Chloride 105 mmol/L (98-107); Cholesterol 142 mg/dL (200); Creatinine, Serum 1.24 mg/dL (0.70-1.30); EST Glomerular Filtration Rate 61 mL/min (>60); Est Glom Filt Rate - Afr Amer 74 mL/min (>60); Estimated Creatinine Clearance 53.85 ml/min; Globulin 4.5 g/dL (2.2-4.2); Glucose 227 mg/dL (74-106); High Density Lipoprotein 31 mg/dL; Magnesium 2.6 mg/dL (1.6-2.6); Phosphorus 5.4 mg/dL (2.5-4.9); Potassium 4.4 mmol/L (3.5-5.1); Sodium Level 133 mmol/L (136-145); Thyroid Stim Hormone (TSH) 0.47 uIU/mL (0.358-3.74); Triglycerides 71 mg/dL; Very Low Density Lipoprotein 14 mg/dL (5-40)
--- NOTE | 2023-09-18 11:46 | CPS ---
patient removed from bipap and placed on 5 lpm via nursing.
[2023-09-18] MEDS: Insulin Lispro 100 UNIT/ML INSULN.PEN SC (11:47)
--- NOTE | 2023-09-18 11:51 | EKG12_ITS ---
Test Reason : Blood Pressure : / mmHG Vent. Rate : 101 BPM Atrial Rate : 101 BPM P-R Int : 210 ms QRS Dur : 106 ms QT Int : 374 ms P-R-T Axes : -19 -23 072 degrees QTc Int : 484 ms Sinus tachycardia with 1st degree A-V block Low voltage QRS Inferior infarct , age undetermined Abnormal ECG When compared with ECG of 18-SEP-2023 12:05, MANUAL COMPARISON REQUIRED, DATA IS UNCONFIRMED Confirmed by MEJIA BEEBE, CHELSEA ([id number]), health editor ALEX KNAPP ([id number]) on 09/22/2023 10:34:49 AM Referred By: Confirmed By:CHELSEA BA MD
--- NOTE | 2023-09-18 12:05 | EKG12_ITS ---
Test Reason : RYTHM CHANGE Blood Pressure : / mmHG Vent. Rate : 045 BPM Atrial Rate : 045 BPM P-R Int : 258 ms QRS Dur : 092 ms QT Int : 542 ms P-R-T Axes : 040 069 102 degrees QTc Int : 468 ms Sinus bradycardia with 1st degree A-V block T wave abnormality, consider anterolateral ischemia Prolonged QT Confirmed by MEJIA BEEBE, CHELSEA ([id number]), copy editor ALEX KNAPP ([id number]) on 09/22/2023 10:36:55 AM Referred By: RAMSEY Confirmed By:CHELSEA BA MD
--- NOTE | 2023-09-18 12:16 | CASEMGMT ---
RN TERRI NOTE: RN CM to room to complete initial assessment. Pt getting ECHO at this time. KATELYN MURRAY to attempt at a later time. Whit MOORE RN CM
[2023-09-18 12:27] LABS: Bedside Glucose 328 mg/dL (74-106)
--- NOTE | 2023-09-18 14:00 | CASEMGMT ---
Addendum entered by Eva Velez 09/18/23 21:51: 1625: Script for glucometer received from Dr Mcintosh and provided to Pura and pt. Original Note: RN?CM?CLEARING INSPECTOR?CM?spoke w/pt and pt's significant other, Pura, for initial transition planning/care coordination?assessment.?RN?CM?introduced self and role at [facility].? Pt voices understanding and consents to?assessment?at this time.? Pt is A/O at this time and answers all questions appropriately.?? Care providers, pharmacy, and demographics verified/updated at this time. PCP: Dr Anson Lewis in [place]. Pt states he just started going there last month and is interested in seeing a different PCP. Provided local PCP directory. Specialists: none Preferred [facility]acy[facility] Insurance:[facility] [place] Prescription Benefit:?yes. Pt did not have Rx benefits until just recently and so he had ran out of his medications, including the Eliquis he was supposed to be taking. They are not sure if pt has used the 30-day Eliquis savings card in the past. This was provided to them at this time and instructed on use. They were made aware if refills are not affordable to discuss other options w/PCP. Living Will/HPOA:?Pt does not currently have LW/HCPOA and would like to complete. Nicole LAI, made aware. Pt states he would like Pura to be his HCPOA and her son, Frank, to be 1st alternative. LNOK: Pt has 2 adult children but has not spoken to them for 2-3 yrs. He does not want them added to his contact list. Pura/sig other is listed and he stated to add Frank as well. This has been done. Living Arrangements: Lives w/sig other, Pura, and he son, Frank, in ground-floor apartment w/4-5 shallow steps to enter. Denies difficulty w/these stairs. Pt is indep w/ADL's and manages his own medications. Pura and Frank to home mgnt tasks. Transportation:?Pt states drives self and states no transportation concerns at this time.? Pura will take pt home @ discharge. DME: ? Denies using any DME. He does not have a glucometer and states he needs one. Script obtained from Dr Mcintosh and provided to pt and Pura. Pt does not have home O2. If he qualifies for O2 @ discharge [employer] is their 1st preference. Pt does not have a pulse ox and RN CM did recommend they buy one. . Pura states they can afford to buy one. HHC/SNF: No hx of either. Discussed discharge planning. Pt states he feels he will be strong enough to discharge home safely. Discussed HHC and he declines this as well. Discussed wound care. Pura states her son, Frank, would be a better one to be educated on wound care/dsg changes, stating He's done home health care in the past . Pt wishes to return home and states has no concerns with going home at time of discharge. ?CM?to follow for home oxygen needs and any further discharge planning/needs.? Pt and Pura voice no further concerns/needs at this time.? PLAN:??Home w/support of sig other, Pura, and her son, Frank. Frank to be educated on wound care/dressing changes. Whit BSN?RN?CM
[2023-09-18] MEDS: LORazepam 0.5 MG Tablet PO (14:07)
--- NOTE | 2023-09-18 14:09 | WOUNDNOTE ---
wound photo: left lower leg
--- NOTE | 2023-09-18 14:14 | CPS ---
patient reqested off.
[2023-09-18] MEDS: Furosemide 500 MG in Empty Viaflex 50 mL 1 EACH CONT INF (15:27)
[2023-09-18] MEDS: Ipratropium/Albuterol Sulfate 3 ML AMPUL.NEB INHALATION ×2 (15:32→20:19)
[2023-09-18 16:33] LABS: Anion Gap 9 (5-15); BUN 35 mg/dL (7-18); BUN/Creat Ratio 22.2 RATIO (10-20); Chloride 106 mmol/L (98-107); Creatinine, Serum 1.58 mg/dL (0.70-1.30); EST Glomerular Filtration Rate 46 mL/min (>60); Est Glom Filt Rate - Afr Amer 56 mL/min (>60); Estimated Creatinine Clearance 42.26 ml/min; Glucose 214 mg/dL (74-106); Potassium 5.9 mmol/L (3.5-5.1); Sodium Level 137 mmol/L (136-145)
[2023-09-18 17:47] LABS: Bedside Glucose 166 mg/dL (74-106)
[2023-09-18] MEDS: Ceftriaxone 1 GM/50 ML BAG IV (21:22)
[2023-09-18] MEDS: Carvedilol 6.25 MG Tablet PO (21:22)
[2023-09-18] MEDS: Azithromycin 500 MG in Dextrose 5%-Water (250mL Bag) 250 ML 250 MG IV (21:22)
[2023-09-18 23:01] LABS: Anion Gap 12 (5-15); BUN 37 mg/dL (7-18); BUN/Creat Ratio 21.3 RATIO (10-20); Chloride 107 mmol/L (98-107); Creatinine, Serum 1.74 mg/dL (0.70-1.30); EST Glomerular Filtration Rate 41 mL/min (>60); Est Glom Filt Rate - Afr Amer 50 mL/min (>60); Estimated Creatinine Clearance 38.37 ml/min; Glucose 139 mg/dL (74-106); Potassium 6.2 mmol/L (3.5-5.1); Sodium Level 139 mmol/L (136-145)
[2023-09-19] VITALS (40 sets, daily range): BP systolic 58–218; BP diastolic 39–166; PULSE 43–95; RESP 12–32; TEMP 36.4–36.9; O2SAT 80–97
[2023-09-19] MEDS: Sodium Polystyrene Sulfonate 15 GM/60 ML UDC 30 GM PO (00:15)
[2023-09-19] MEDS: Dextrose 50%-Water 25 GM/50 ML DISP.SYRIN IV ×2 (00:15→08:33)
[2023-09-19 01:04] LABS: Blood Gas Specimen Type VEN; O2 Delivery Device BiPAP; PEEP 10; SITE Not entered; VBG BASE EXCESS -11 mmol/L (-1.0-3.5); VBG Bicarbonate 19 mmol/L (22-26); VBG PO2 98 mmHg (25-40); VBG SO2 94 % (50-70); VBG TCO2 21 mmol/L (23-33); VBG pCO2 63.2 mmHg (41-51); VBG pH 7.09 (7.32-7.42)
[2023-09-19] MEDS: fentaNYL drip 100 ML 10 MCG CONT INF (02:00)
[2023-09-19] MEDS: Propofol 10MG/Ml 1,000 MG/100 ML Bottle 14.1999999999999993 MG CONT INF (02:00)
--- NOTE | 2023-09-19 02:10 | RAD_ITS ---
INDICATION: ETT placement EXAMINATION/TECHNIQUE: X-RAY - XR Chest 1 View COMPARISON: 09/18/2023. FINDINGS: LINES/DEVICES: Endotracheal tube tip approximately 3.0 cm from the mikey. Enteric tube distal tip distal to the GE junction and inferior to the field of view with the side-port not visualized. LUNGS: Diffuse bilateral interstitial and airspace opacities. Small right pleural effusion. No evidence of a pneumothorax. MEDIASTINUM AND CARDIOVASCULAR STRUCTURES: Stable cardiomegaly. Mediastinum is unremarkable. BONES AND SOFT TISSUES: No acute abnormality. RAD/Chest 1 View (Portable) IMPRESSION: 1. Endotracheal tube tip approximately 3.0 cm from the mikey. 2. Diffuse bilateral interstitial and airspace opacities consistent with edema and/or pneumonia. 3. Small right pleural effusion. 4. Stable cardiomegaly. Electronically Signed: Francisco Javier Ross DO at 3:33 EST ,
--- NOTE | 2023-09-19 02:35 | NURSING ---
Patient arrived from PCU in need of rapid sequence intubation. RN's and RT at bedside, Dr. Tirado at bedside confirming need for intubation. Family contacted about patient's change of condition. Family wanting to move forward with intubation. Patient was given 10 mg of etomidate at 0142. Patient given 10 mg of succ at 0143. Patient intubated at 0145. 7.5 ETT tube 23 at the lip. Bilateral breath sounds and positive color change. OG placed by Dr. Tirado. Restraints placed on patient, junior placed. Stat chest x-ray completed. Placement confirmed for both ETT and OG.
[2023-09-19] MEDS: 0.9% Normal Saline (500mL Bag) 500 ML 999 ML IV (03:00)
--- NOTE | 2023-09-19 03:15 | PN.HOSP_ITS ---
Hospitalist Note I was called by the floor RN and informed patient had new onset hyperkalemia suspicious for underlying acidosis. He also seems to be running out of energy on BiPAP so an VBG was checked which confirm suspicion for severe respiratory acidosis with pH of 7.09 and pCO2 of 63.2 with a pO2 98 with patient on BiPAP with a tidal volume of 450 and FiO2 of 70% and 10 of PEEP. His family was then notified that he was going to require intubation so he was moved to the ICU in preparation. He was then induced with 10 mg of etomidate followed by 10 mg succinylcholine and he was then intubated on the first attempt with glide scope. The glide scope was then also used to help place the OG tube on the first attempt. His follow-up chest x-ray showed that the ET tube and OG tube were in good position. I then went out to the waiting room and spoke to the family for approximately 30 minutes and updated him on his condition and help to align their expectations with the new reality that he is critically ill and that he may struggle to survive. The family was in agreement with the plan and all other questions were answered to the best of my ability. Finally, I would like to thank the ICU RNs as well as RT for doing an outstanding job under significant pressure. RUN DATE: 09/19/23 [facility], DEPARTMENT OF LABORATORIES PAGE 1 RUN TIME: 314 Specimen In[address], [place], [address] PATIENT: ANNA PEREYRA LOC: ICU U #: [id number] : 1950 AGE/SX: 73/M FACILITY: [facility] ROOM: [place] [address] RE09/17/[address]: Dr. Noemy Mcintosh, DO STATUS:ADM IN ED: 1 DIS: ~ SPEC #: [id number] SARWAT: 09/19/23 STATUS: COMP REQ #: [id number] RECD: 09/19/[address]: Dr. Noemy Mcintosh, DO ENTERED: 09/19/23 [facility] DR: MD Dr. Donn Park, MARY ELLEN MCCAIN ~ Test Result Flag Adult Reference Range VIBG Blood Gas Type JEIN SITE Not entered O2 Delivery Dev BiPAP Vt 450.0 mL FI02 70.0 PEEP 10 Time Given 01:00:17 Results To Tirado Read Back By Yes VBG pH 7.09 *L 7.32-7.42 VBG pCO2 63.2 H 41-51 mmHg VBG PO2 98 H 25-40 mmHg VBG HCO3 19 L 22-26 mmol/L VBG BE -11 L -1.0-3.5 mmol/L VBG SO2 94 H 50-70 % VBG TCO2 21 L 23-33 mmol/L END OF REPORT [facility] Imaging Services [address] [place] [address] Chest 1 View (Portable) MR#: [id number] Acct: [id number] Name: ANNA PEREYRA Rep #: [id number] : 1950 M 73 From: Francisco Javier Ross MD PCP: MARY ELLEN BUTTERFIELD Status: ADM IN Study: Chest 1 View (Portable) Date of Exam: 09/19/23 Exam# [id number] Ordering Dr: Donn Tirado DO INDICATION: ETT placement EXAMINATION/TECHNIQUE: X-RAY - XR Chest 1 View COMPARISON: 09/18/2023. FINDINGS: LINES/DEVICES: Endotracheal tube tip approximately 3.0 cm from the mikey. Enteric tube distal tip distal to the GE junction and inferior to the field of view with the side-port not visualized. LUNGS: Diffuse bilateral interstitial and airspace opacities. Small right pleural effusion. No evidence of a pneumothorax. MEDIASTINUM AND CARDIOVASCULAR STRUCTURES: Stable cardiomegaly. Mediastinum is unremarkable. BONES AND SOFT TISSUES: No acute abnormality. RAD/Chest 1 View (Portable) IMPRESSION: 1. Endotracheal tube tip approximately 3.0 cm from the mikey. 2. Diffuse bilateral interstitial and airspace opacities consistent with edema and/or pneumonia. 3. Small right pleural effusion. 4. Stable cardiomegaly. Electronically Signed: Francisco Javier Ross DO at 3:33 EST , CC: Dr. Donn Tirado DO; MARY ELLEN BUTTERFIELD ~
[2023-09-19 03:33] LABS: Allen Test Positive; Base Excess -11 mmol/L (-2 to +2); Bicarbonate 18.2 mmol/L (22-26); Blood Gas Specimen Type ART; Mode AC; O2 Delivery Device Adult Vent; PEEP 5; PO2 91 mmHG (75-100); RR 16; SITE L Radial; SO2 94 % (95-99); Total Carbon Dioxide 20 mmol/L; pCO2 53.4 mmHg (35-45); pH 7.14 (7.35-7.45)
[2023-09-19] MEDS: Etomidate 20 MG/10 ML Vial 10 MG IV (03:35)
[2023-09-19] MEDS: Succinylcholine Chloride 200 MG/10 ML SYRINGE 10 MG IV (03:36)
--- NOTE | 2023-09-19 03:48 | NURSING ---
Patient came up to ICU with 1 IV. Lasix drip was stopped in order to initiate fentanyl and propofol administration. Dr. Guerreroed propofol to be started at 20 mcg/kg/min and fentanyl to start at 100 mcg/kg/min.
[2023-09-19] MEDS: Propofol 10MG/Ml 1,000 MG/100 ML Bottle 10.5999999999999996 MG CONT INF (05:00)
--- NOTE | 2023-09-19 05:00 | RAD_ITS ---
INDICATION: CVC placement EXAMINATION/TECHNIQUE: X-RAY - XR Chest 1 View COMPARISON: 09/19/2023. FINDINGS: LINES/DEVICES: Endotracheal tube is stable. Enteric tube side-port and distal tip are inferior to the field of view. Right IJ central venous catheter with the tip oriented cephalad. LUNGS: Small bilateral pleural effusions. Left lower lung atelectasis versus infiltrates. No evidence of a pneumothorax. MEDIASTINUM AND CARDIOVASCULAR STRUCTURES: Stable cardiomegaly. Mediastinum is unremarkable. BONES AND SOFT TISSUES: No acute abnormality. RAD/Chest 1 View (Portable) IMPRESSION: 1. Right IJ central venous catheter tip oriented cephalad. Recommend replacing. 2. Small bilateral pleural effusions. 3. Left lower lung atelectasis versus infiltrates. 4. Stable cardiomegaly. Electronically Signed: Francisco Javier Ross DO at 6:05 EST ,
[2023-09-19] MEDS: Norepinephrine 8 MG in 0.9% Normal Saline (250mL Bag) 242 ML 9.40000000000000036 MG CONT INF (05:50)
[2023-09-19] MEDS: Sodium Bicarbonate 150 MEQ in Dextrose 5%-Water (1000mL Bag) 1,000 ML IV (05:54)
[2023-09-19] MEDS: Sodium Bicarbonate 8.4% 50 ML Syringe 50 MEQ IV (05:55)
--- NOTE | 2023-09-19 06:00 | RAD_ITS ---
INDICATION: central line not in right place EXAMINATION/TECHNIQUE: X-RAY - XR Chest 1 View COMPARISON: 09/19/2023 at 5:19 AM. FINDINGS: LINES/DEVICES: Right IJ central venous catheter in good position with the tip at the superior vena cava. Endotracheal tube and enteric tube are stable. LUNGS: Stable bilateral pleural effusions. Left basilar atelectasis versus infiltrate. No evidence of a pneumothorax. MEDIASTINUM AND CARDIOVASCULAR STRUCTURES: Stable cardiomegaly. Mediastinum is unremarkable. BONES AND SOFT TISSUES: No acute abnormality. RAD/Chest 1 View (Portable) IMPRESSION: Right IJ central venous catheter in good position with the tip at the superior vena cava. Electronically Signed: Francisco Javier Ross DO at 7:33 EST ,
[2023-09-19 06:15] LABS: Absolute Lymphocyte Count 1.41 X10^3/uL (0.83-4.51); Absolute Neutrophil Count 14.9 X10^3/uL (2.0-7.7); Basophil# 0.05 X10^3/uL; Basophil% 0.3 % (0-1); Hematocrit 46.4 % (40-54); Hemoglobin 13.6 g/dL (13.0-16.5); Lymphocyte # 1.41 X10^3/ul (0.83-4.51); Mean Corp Hgb Conc 29.3 g/dL (32-36); Mean Corpuscular Hgb 25.7 pg (27.0-32.0); Mean Corpuscular Volume 87.5 fL (80-94); Mean Platelet Vol. 10.9 fl (6.2-12.0); Monocyte% 5.7 % (0-10); NRBC Flagged by Analyzer 0 % (0-5); Neutrophil # 14.89 X10^3/uL (2.7-7.7); Neutrophil % 84.2 % (47-70); POSITIVE COUNT YES; Platelet Count 92 K/mm3 (150-450); RBC Distribution Width SD 55.3 fl (35.1-43.9); White Blood Count 17.7 K/mm3 (4.4-11.0)
[2023-09-19 06:25] LABS: Differential Indicated SCAN CRITERIA MET
[2023-09-19 06:41] LABS: Allen Test Positive; Base Excess -10 mmol/L (-2 to +2); Bicarbonate 18.9 mmol/L (22-26); Blood Gas Specimen Type ART; Mode AC; O2 Delivery Device Adult Vent; PEEP 12; PO2 96 mmHG (75-100); RR 16; SITE L Radial; SO2 94 % (95-99); Total Carbon Dioxide 21 mmol/L; pCO2 58.4 mmHg (35-45); pH 7.12 (7.35-7.45)
[2023-09-19] MEDS: 0.9% Saline Lock 10 ML Syringe IV (06:46)
[2023-09-19] MEDS: Ipratropium/Albuterol Sulfate 3 ML AMPUL.NEB INHALATION ×3 (06:50→15:22)
[2023-09-19 06:52] LABS: CPK Total, Creatine Kinase 188 U/L (39-308); Triglycerides 108 mg/dL
[2023-09-19 07:00] LABS: Platelet Estimate MOD DEC (ADEQ)
[2023-09-19 07:14] LABS: ALB/GLOB Ratio 0.8 RATIO (0.9-2.4); AST(SGOT) 1866 U/L (15-37); Alanine Aminotransfer ALT/SGPT 1173 U/L (16-61); Albumin, Serum 2.4 g/dL (3.2-5.0); Alkaline Phosphatase 90 U/L (45-117); Anion Gap 10 (5-15); BUN 50 mg/dL (7-18); BUN/Creat Ratio 19.3 RATIO (10-20); Calcium,Total 8.1 mg/dL (8.5-10.1); Chloride 105 mmol/L (98-107); Cholesterol 92 mg/dL (200); Creatinine, Serum 2.59 mg/dL (0.70-1.30); EST Glomerular Filtration Rate 26 mL/min (>60); Est Glom Filt Rate - Afr Amer 32 mL/min (>60); Estimated Creatinine Clearance 25.78 ml/min; Globulin 3.1 g/dL (2.2-4.2); Glucose 238 mg/dL (74-106); High Density Lipoprotein 21 mg/dL; Magnesium 2.5 mg/dL (1.6-2.6); Phosphorus 9.5 mg/dL (2.5-4.9); Potassium 6.2 mmol/L (3.5-5.1); Protein, Total 5.5 g/dL (6.4-8.2); Sodium Level 139 mmol/L (136-145); Triglycerides 111 mg/dL; Very Low Density Lipoprotein 22 mg/dL (5-40)
--- NOTE | 2023-09-19 07:30 | PN.HOSP_ITS ---
Hospitalist Note Patient needed a CVC after he was intubated due to poor peripheral IV access so he was prepped and draped in sterile fashion and the ultrasound was used for identify the Right IJ with local area then injected with Lidocaine and then a syringe was passed into the Right IJ and then a guidewire was advanced into the vessel. Then a small incision was made at the point of entry and an introducer was slid into place. Then a Right IJ CVC was threaded over the guidewire with all ports drawing and flushing easily so it was then securely sutured into place. Unfortunately, the CXR to confirm placement revealed the tip of the CVC was cephalad and it was recommended to be replaced. Therefore, another guide wire was inserted through the proximal port of the CVC and the line was repositioned with all ports drawing and flushing easily before it was sutured into place with the the next CXR confirming the line was in good position. Then at ~6:30 AM a CODE BLUE was called overhead after he developed severe bradycardia in the ~20 bpm range followed by PEA. He was treated with Atropine and then two doses of Epinephrine and then he regained a pulse. His ABG revealed severe, persistent respiratory acidosis with patient saturating ~80% on 100% FiO2 with 12 of PEEP. The EAR NOSE AND THROAT SPECIALIST was asked to contact the food writer to see if they would agree with placing this patient in prone position. Also after his CODE his X-rays show that his OGT was not in good position and the dayshift hospitalist contacted the ICU broker in charge to have it repositioned. [facility] Imaging Services [address] [place] [address] Chest 1 View (Portable) MR#: [id number] Acct: [id number] Name: ANNA PEREYRA Rep #: [id number] : 1950 M 73 From: Francisco Javier Ross MD PCP: MARY ELLEN BUTTERFIELD Status: ADM IN Study: Chest 1 View (Portable) Date of Exam: 09/19/23 Exam# [id number] Ordering Dr: Donn Tirado DO INDICATION: CVC placement EXAMINATION/TECHNIQUE: X-RAY - XR Chest 1 View COMPARISON: 09/19/2023. FINDINGS: LINES/DEVICES: Endotracheal tube is stable. Enteric tube side-port and distal tip are inferior to the field of view. Right IJ central venous catheter with the tip oriented cephalad. LUNGS: Small bilateral pleural effusions. Left lower lung atelectasis versus infiltrates. No evidence of a pneumothorax. MEDIASTINUM AND CARDIOVASCULAR STRUCTURES: Stable cardiomegaly. Mediastinum is unremarkable. BONES AND SOFT TISSUES: No acute abnormality. RAD/Chest 1 View (Portable) IMPRESSION: 1. Right IJ central venous catheter tip oriented cephalad. Recommend replacing. 2. Small bilateral pleural effusions. 3. Left lower lung atelectasis versus infiltrates. 4. Stable cardiomegaly. Electronically Signed: Francisco Javier Ross DO at 6:05 EST , CC: Dr. Donn Tirado DO; MARY ELLEN BUTTERFIELD ~ Cost Estimating Manager: Signed [facility] Imaging Services [address] [place] [address] Chest 1 View (Portable) MR#: [id number] Acct: [id number] Name: ANNA PEREYRA Rep #: [id number] : 1950 M 73 From: Francisco Javier Ross MD PCP: MARY ELLEN BUTTERFIELD Status: ADM IN Study: Chest 1 View (Portable) Date of Exam:
--- NOTE | 2023-09-19 07:30 | PCM.HOSP.N ---
Hospitalist Note Patient needed a CVC after he was intubated due to poor peripheral IV access so he was prepped and draped in sterile fashion and the ultrasound was used for identify the Right IJ with local area then injected with Lidocaine and then a syringe was passed into the Right IJ and then a guidewire was advanced into the vessel. Then a small incision was made at the point of entry and an introducer was slid into place. Then a Right IJ CVC was threaded over the guidewire with all ports drawing and flushing easily so it was then securely sutured into place. Unfortunately, the CXR to confirm placement revealed the tip of the CVC was cephalad and it was recommended to be replaced. Therefore, another guide wire was inserted through the proximal port of the CVC and the line was repositioned with all ports drawing and flushing easily before it was sutured into place with the the next CXR confirming the line was in good position. Then at ~6:30 AM a CODE BLUE was called overhead after he developed severe bradycardia in the ~20 bpm range followed by PEA. He was treated with Atropine and then two doses of Epinephrine and then he regained a pulse. His ABG revealed severe, persistent respiratory acidosis with patient saturating ~80% on 100% FiO2 with 12 of PEEP. The CHEMIC MANGLER was asked to contact the type mapper to see if they would agree with placing this patient in prone position. Also after his CODE his X-rays show that his OGT was not in good position and the dayshift hospitalist contacted the ICU char filter tank tender head to have it repositioned. [facility] Imaging Services [address] [place] [address] Chest 1 View (Portable) MR#: [id number] Acct: [id number] Name: ANNA PEREYRA Rep #: [id number] : 1950 M 73 From: Francisco Javier Ross MD PCP: MARY ELLEN BUTTERFIELD Status: ADM IN Study: Chest 1 View (Portable) Date of Exam: 09/19/23 Exam# [id number] Ordering Dr: Donn Tirado DO INDICATION: CVC placement EXAMINATION/TECHNIQUE: X-RAY - XR Chest 1 View COMPARISON: 09/19/2023. FINDINGS: LINES/DEVICES: Endotracheal tube is stable. Enteric tube side-port and distal tip are inferior to the field of view. Right IJ central venous catheter with the tip oriented cephalad. LUNGS: Small bilateral pleural effusions. Left lower lung atelectasis versus infiltrates. No evidence of a pneumothorax. MEDIASTINUM AND CARDIOVASCULAR STRUCTURES: Stable cardiomegaly. Mediastinum is unremarkable. BONES AND SOFT TISSUES: No acute abnormality. RAD/Chest 1 View (Portable) IMPRESSION: 1. Right IJ central venous catheter tip oriented cephalad. Recommend replacing. 2. Small bilateral pleural effusions. 3. Left lower lung atelectasis versus infiltrates. 4. Stable cardiomegaly. Electronically Signed: Francisco Javier Ross DO at 6:05 EST , CC: Dr. Donn Tirado DO; MARY ELLEN BUTTERFIELD ~ Laborer Cement Gun Placing: Signed [facility] Imaging Services [address] [place] [address] Chest 1 View (Portable) MR#: [id number] Acct: [id number] Name: ANNA PEREYRA Rep #: [id number] : 1950 M 73 From: Francisco Javier Ross MD PCP: MARY ELLEN BUTTERFIELD Status: ADM IN Study: Chest 1 View (Portable) Date of Exam: 09/19/23 Exam# [id number] Ordering Dr: Donn Tirado DO INDICATION: central line not in right place EXAMINATION/TECHNIQUE: X-RAY - XR Chest 1 View COMPARISON: 09/19/2023 at 5:19 AM. FINDINGS: LINES/DEVICES: Right IJ central venous catheter in good position with the tip at the superior vena cava. Endotracheal tube and enteric tube are stable. LUNGS: Stable bilateral pleural effusions. Left basilar atelectasis versus infiltrate. No evidence of a pneumothorax. MEDIASTINUM AND CARDIOVASCULAR STRUCTURES: Stable cardiomegaly. Mediastinum is unremarkable. BONES AND SOFT TISSUES: No acute abnormality. RAD/Chest 1 View (Portable) IMPRESSION: Right IJ central venous catheter in good position with the tip at the superior vena cava. Electronically Signed: Francisco Javier Ross DO at 7:33 EST , CC: Dr. Donn Tirado DO; MARY ELLEN BUTTERFIELD ~ Laborer Cement Gun Placing: Signed RUN DATE: 09/19/[address] [facility], DEPARTMENT OF LABORATORIES PAGE 1 RUN TIME: 0743 Specimen Inquiry [address], [place], [address] PATIENT: ANNA PEREYRA LOC: ICU U #: [id number] : 1950 AGE/SX: 73/M FACILITY: [facility] ROOM: [place] [address] RE09/17/[address]: Dr. Noemy Mcintosh DO STATUS:ADM IN ED: 1 DIS: ~ SPEC #: [id number] SARWAT: 09/19/23 STATUS: COMP REQ #: [id number] RECD: 09/19/[address]: Dr. Noemy Mcintosh DO ENTERED: 09/19/23 [facility] DR: MD Dr. Donn Park DO STRIEGEL,PETER ~ Test Result Flag Adult Reference Range IBG Blood Gas Type ART SITE L Radial FREEDOM TEST Positive Mode AC O2 Delivery Dev Adult Vent Vt 450.0 mL RR 16 FI02 100.0 PEEP 12 Time Given 06:38:40 Results To tirado Read Back By Yes pH 7.12 *L 7.35-7.45 pCO2 58.4 H 35-45 mmHg PO2 96 75-100 mmHG HCO3 18.9 L 22-26 mmol/L BE -10 L -2 to +2 mmol/L TOTAL CO2 21 mmol/L SO2 94 L 95-99 % END OF REPORT
[2023-09-19 07:56] LABS: Bedside Glucose 207 mg/dL (74-106)
--- NOTE | 2023-09-19 08:53 | PN.HOSP_ITS ---
Reason for Visit Reason for Visit: Shortness of breath/wound check Subjective Subjective Overnight patient's respiratory status started to decline and he required intubation and then had a PEA arrest. Upon intubation he was transferred to the ICU. Unfortunately arrest happened after intubation with PEA but ROSC was obtained. Patient is currently on Levophed at 30 and on a ventilator at 100% with a PEEP of 10. We suspect his requirement for intubation was multifactorial with heart failure, COVID, and worsening renal function. He did not diurese well at all with Lasix drip and will require CVVHD as he appears to be markedly volume overloaded with a severely dilated IVC on fast scan. Objective Data Objective Data Vital Signs: Vital Signs Temp Pulse Resp BP Pulse Ox O2 Del Method O2 Flow Rate 97.5 F L 75 22 H 127/87 H 94 Mechanical Ventilator 15 09/19/23 04:00 09/19/23 07:45 09/19/23 07:24 09/19/23 07:45 09/19/23 07:24 09/19/23 07:24 09/19/23 01:45 FiO2 100 09/19/23 07:24 Oxygen Flow Rate (L/min) 15 Oxygen Delivery Method Mechanical Ventilator Weight: 118 kg Body Mass Index (BMI) 38.4 Intake & Output: Intake and Output for Last 24 Hours 09/17/23 09/18/23 09/19/23 23:59 23:59 23:59 Intake Total 702.16 / 904.66 1374.84 / 1374.84 706.14 / 706.14 Output Total 850 / 1000 500 / 1040 540 / 540 Balance -147.84 / -95.34 874.84 / 334.84 166.14 / 166.14 Lab / Micro Data 09/19/23 06:03 09/19/23 06:03 Labs: Laboratory Results - last 24 hr 09/18/23 09:20: WBC 11.8 H, RBC 5.59, Hgb 14.1, Hct 48.2, MCV 86.2, MCH 25.2 L, MCHC 29.3 L, RDW Std Deviation 54.4 H, RDW Coeff of Bettie 18.1 H, Plt Count 225, MPV 10.9, Immature Gran % (Auto) 0.600, Neut % (Auto) 85.6 H, Lymph % (Auto) 9.1 L, [place] % (Auto) 4.3, Eos % (Auto) 0.1, Baso % (Auto) 0.3, Absolute Neuts (auto) 10.1 H, Absolute Lymphs (auto) 1.08, Nucleated RBC % 0, Sodium 133 L, Potassium 4.4, Chloride 105, Carbon Dioxide 23.0, Anion Gap 5, BUN 32 H, Creatinine 1.24, Estim Creat Clear Calc 53.85, Est GFR (MDRD) Af Amer 74, Est GFR (MDRD) Non-Af 61, BUN/Creatinine Ratio 25.8 H, Glucose 227 H, Calcium 8.6, Phosphorus 5.4 H, Magnesium 2.6, Total Bilirubin 0.70, AST 17, ALT 22, Alkaline Phosphatase 89, C- React Prot Ext Range 36.50 H, Total Protein 7.0, Albumin 2.5 L, Globulin 4.5 H, Albumin/Globulin Ratio 0.6 L, Triglycerides 71, Cholesterol 142, LDL Cholesterol 97, VLDL Cholesterol 14, HDL Cholesterol 31 L, TSH 0.47 09/18/23 11:42: POC Glucose 328 H 09/18/23 15:15: Sodium 137, Potassium 5.9 H, Chloride 106, Carbon Dioxide 22.0, Anion Gap 9, BUN 35 H, Creatinine 1.58 H, Estim Creat Clear Calc 42.26, Est GFR (MDRD) Af Amer 56 L, Est GFR (MDRD) Non-Af 46 L, BUN/Creatinine Ratio 22.2 H, Glucose 214 H, Calcium 9.0 09/18/23 17:19: POC Glucose 166 H 09/18/23 22:20: Sodium 139, Potassium 6.2 H*, Chloride 107, Carbon Dioxide 20.0 L, Anion Gap 12, BUN 37 H, Creatinine 1.74 H, Estim Creat Clear Calc 38.37, Est GFR (MDRD) Af Amer 50 L, Est GFR (MDRD) Non-Af 41 L, BUN/Creatinine Ratio 21.3 H , Glucose 139 H, Calcium 9.0 09/19/23 06:03: WBC 17.7 H, RBC 5.30, Hgb 13.6, Hct 46.4, MCV 87.5, MCH 25.7 L, MCHC 29.3 L, RDW Std Deviation 55.3 H, RDW Coeff of Bettie 18.0 H, Plt Count 92 L, MPV 10.9, Immature Gran % (Auto) 1.800 H, Neut % (Auto) 84.2 H, Lymph % (Auto) 8.0 L, [place] % (Auto) 5.7, Eos % (Auto) 0.0, Baso % (Auto) 0.3, Absolute Neuts (auto) 14.9 H, Absolute Lymphs (auto) 1.41, Nucleated RBC % 0, Platelet Estimate MOD DEC, Sodium 139, Potassium 6.2 H*, Chloride 105, Carbon Dioxide 24.0, Anion Gap 10, BUN 50 H, Creatinine 2.59 H, Estim Creat Clear Calc 25.78, Est GFR (MDRD) Af Amer 32 L, Est GFR (MDRD) Non-Af 26 L, BUN/Creatinine Ratio 19.3, Glucose 238 H, Calcium 8.1 L, Phosphorus 9.5 H*, Magnesium 2.5, Total Bilirubin 1.70 H, AST 1866 H, ALT 1173 H, Alkaline Phosphatase 90, Total Creatine Kinase 188, Total Protein 5.5 L, Albumin 2.4 L, Globulin 3.1, Albumin/Globulin Ratio 0.8 L, Triglycerides 111 09/19/23 06:03: Triglycerides 108, Cholesterol 92, LDL Cholesterol 49, VLDL Cholesterol 22, HDL Cholesterol 21 L 09/19/23 06:39: POC Glucose 207 H Micro: Microbiology 09/17/23 18:01 Urine, Clean Catch Urine Culture - Preliminary Culture exhibits no growth. 09/17/23 23:30 Urine, Clean Catch Legionella Antigen - Final 09/17/23 23:30 Urine, Clean Catch Streptococcus pneumoniae Antigen (M - Final 09/17/23 17:27 Mucosa - Nose SARS-CoV-2, Influenza & RSV (PCR) - Final SARS-CoV-2 (COVID 19) ABG Data ABG results: ABG 09/19/23 09/19/23 09/19/23 00:57 03:26 06:37 Specimen Type JENI ART ART Sample Site Not entered L Radial L Radial pH 7.14 L* 7.12 L* Bicarbonate Actual 18.2 L 18.9 L Total CO2 20 21 Base Excess -11 L -10 L O2 Saturation 94 L 94 L O2 % 70.0 100.0 100.0 ABG pCO2 53.4 H 58.4 H ABG pO2 91 96 Gennaro Test Positive Positive VBG pH 7.09 L* VBG pO2 98 H VBG HCO3 19 L VBG Total CO2 21 L VBG O2 Sat (Calc) 94 H VBG Base Excess -11 L POC Mix VBG pCO2 Pt Tmp 63.2 H Respiration Rate 16 16 O2 Delivery Device BiPAP Adult Vent Adult Vent Vent Mode AC AC Tidal Volume 450.0 450.0 450.0 POC PEEP 10 5 12 Crit Call To/Read Back Yes Yes Yes Blood Gas Notified Yudy tirado Blood Gas Notified Time 01:00:17 03:28:25 06:38:40 Radiography Diagnostic Testing: Radiology Impression Venous Doppler Study 09/18/23 02:03 Interpretation Summary No evidence for acute deep venous thrombosis bilateral lower extremities with patent and compressible bilateral great saphenous veins. Covid abbreviated, technically difficult exam Ordering Physician: Donn Tirado Referring Physician: N/A Performed By: Vern Angel RVT Echocardiogram 09/18/23 09:05 Interpretation Summary Estimated LVEF 10 to 15%. Severe global LV systolic dysfunction Severe global right ventricular systolic dysfunction. Moderate (2+) mitral valve insufficiency. Severe (4+) tricuspid valve insufficiency. Right ventricular systolic pressure estimated to be 49 mmHg. Mild (1+) aortic valve insufficiency. There is severe biatrial dilatation. Ordering Physician: Noemy Mcintosh Performed By: Mikel White RCS Chest X-Ray 09/19/23 02:10 IMPRESSION: 1. Endotracheal tube tip approximately 3.0 cm from the mikey. 2. Diffuse bilateral interstitial and airspace opacities consistent with edema and/or pneumonia. 3. Small right pleural effusion. 4. Stable cardiomegaly. Electronically Signed: Francisco Javier RossDO at 3:33 EST , Chest X-Ray 09/19/23 05:00 IMPRESSION: 1. Right IJ central venous catheter tip oriented cephalad. Recommend replacing. 2. Small bilateral pleural effusions. 3. Left lower lung atelectasis versus infiltrates. 4. Stable cardiomegaly. Electronically Signed: Francisco Javier RossDO at 6:05 EST Reading Location ID and State: [facility] / [place] Tel , Service support , Chest X-Ray 09/19/23 06:00 IMPRESSION: Right IJ central venous catheter in good position with the tip at the superior vena cava. Electronically Signed: Francisco Javier RossDO at 7:33 EST , Physical Exam Const Constitutional Narrative: Morbidly obese, white male, lying in bed, intubated and sedated, on ventilator HEENT normocephalic and head/scalp atraumatic HEENT Narrative: ET tube/OG in place Eyes PERRL Eyes Narrative: No scleral icterus Neck no lymphadenopathy and supple Neck Narrative: Right IJ in place, trachea is midline Resp Resp Narrative: Severely diminished breath sounds bilaterally, intubated, crackles Auscultation: rales; Negative for rhonchi or wheezes Cardio regular rate, regular rhythm, S1 normal heart sound, S2 normal heart sound, no murmurs, no rub, no gallops and no clicks GI normal to inspection, nondistended, normoactive bowel sounds, soft to palpation and non-tender GI Narrative: Large protuberant abdomen, ascites is apparent on fast scan Extremity Extremity Narrative: Severe edema bilateral lower extremities with weeping of legs bilaterally, left anterior garcia with wound and surrounding erythema, nicotine stains on his hands, no significant clubbing or cyanosis, legs are slightly mottled however Skin Skin Narrative: See above Neuro Neuro Narrative: Intubated and sedated on a ventilator Psych Psych Narrative: Unable to assess Assessment & Plan Assessment/Plan (1) Medical non-compliance: (2) Chronic atrial fibrillation with rapid ventricular response: (3) Acute exacerbation of COPD with asthma: (4) Bacterial pneumonia: (5) COVID-19: (6) Cardiomyopathy: PLAN: Plan Acute hypoxic and hypercapnic respiratory failure secondary to acute COVID-19 infection with possible superimposed bacterial pneumonia/combined right-sided and left-sided heart failure -Patient with worsening respiratory status overnight developing hypercapnia and respiratory acidosis that required intubation and then had PEA arrest after he was intubated -ROSC achieved -Patient now on 30 of Levophed -Antibiotics broadened to vancomycin and Zosyn -Sputum culture was finally able to be obtained after intubation -Strep pneumo and Legionella antigens are negative -Urine cultures unremarkable -Blood cultures pending -Patient requiring very aggressive ventilator settings to maintain oxygenation -Chest x-ray did look like the OG was in the right mainstem and this has since been removed--> his oxygenation has improved since then -Pulmonary toilet as ordered -Pulmonary medicine/critical care following Septic/cardiogenic shock -Secondary to acute COVID-19 infection and suspected superimposed bacterial pneumonia -Continue Levophed--> currently at 30 mcg/min -May need to consider vasopressin -? add dobutamine-will discuss with critical care medicine--> this would help with his pump failure -Cultures are pending -Continue broad-spectrum antibiotics as noted above Acute combined heart failure -Echocardiogram done on 09/18/2023 showed an EF of 10 to 15% with some severe global left ventricular systolic function and severe global right ventricular systolic dysfunction, mitral valve insufficiency that is moderate, severe tricuspid valve insufficiency and right ventricular systolic pressure of 49 mmHg, he was found to have severe biatrial dilation -Stop antihypertensives due to the above -Patient did not respond to Lasix -Consider SGLT 2 inhibitor if patient survives -Discussed case with cardiology and they will follow him with his outpatient--no current invasive or noninvasive testing with regards to his coronary arteries due to COVID-19 infection currently -Will need evaluated for sleep apnea if he survives SHRUTHI -Kidney function worsening and likely related to shock -Also suspect cardiorenal syndrome -Will check kidney ultrasound -Urine lites -Consult nephrology for CVVHD--> discussed with Dr. Hernandez he will put orders in and we did discuss the patient needs volume removal so he will try to pull 50 cc/h -Dialysis catheter placed on 09/19/2023 Refractory hyperkalemia -CVVHD as above -Has had appropriate medical treatment for hyperkalemia Shock liver -Due to arrest -Examinations are in the thousands -Avoid hepatotoxins -Trend enzymes -Check coags Paroxysmal atrial fibrillation with RVR/suspected sick sinus syndrome -Patient RVR on presentation likely due to respiratory distress but then had bradycardia later in the afternoon so I do suspect he may have some sick sinus syndrome -Beta-blockers are on hold due to hypotension and bradycardia -Stop Eliquis with renal and liver failure -Avoid calcium channel blockers with depressed EF -If patient reverts back to A-fib would start amiodarone with drip and bolus given prior to drip initiation -Echo as above -TSH within normal limits -I have consulted cardiology for sick sinus syndrome as of yesterday however costa martell is not a candidate for a pacemaker at this time due to his critical illness consult was placed before he decompensated Left lower extremity cellulitis -Continue antibiotics -MRSA PCR is negative -Wound care consultation -Lower extremity Dopplers were negative for DVT Hypertension -Patient had not been compliant with home medications -Patient currently hypotensive HPL -Stop statin due to liver failure DM-2 -Patient is diet controlled at baseline -Hemoglobin A1c is 7.5 -Will add Jardiance once patient is medically optimized from his heart failure -SSI and Accu-Cheks as ordered with steroid use History of diabetic neuropathy -Continue home gabapentin History of right carotid stenosis -No current issues -Continued outpatient follow-up AVELINA -Hold home medications GI/DVT prophylaxis -Start Protonix IV daily -Subcu heparin for DVT prophylaxis CODE STATUS -Full code is verified on admission Significant other and her son were updated. They are not and not blood relation. Patient evidently has shoulder and however we have no way to contact them at this time. Will likely need social work assistance for contacting family. Charges/Coding Visit Charges Inpatient E&M: 71610 Subs Hosp L3
[2023-09-19] MEDS: Insulin Lispro 10 UNIT in Syringe 0 ML 6 UNIT IV (08:56)
[2023-09-19] MEDS: Calcium Gluconate IV 2 GM in 0.9% Normal Saline (100mL Bag) 100 ML IV (09:02)
[2023-09-19] MEDS: Epinephrine (1 mg/ml) 1 MG in 0.9% Normal Saline (250mL Bag) 250 ML 15.0999999999999996 MG IV (09:02)
[2023-09-19] MEDS: Vancomycin HCl 2,000 MG in 0.9% Normal Saline (500mL Bag) 500 ML 250 MG IV (09:14)
[2023-09-19] MEDS: Midazolam 2 MG/2 ML Syringe IV ×2 (09:40→10:30)
[2023-09-19 11:03] LABS: Base Excess -4 mmol/L (-2 to +2); Bicarbonate 23.2 mmol/L (22-26); Blood Gas Specimen Type ART; Mode AC; O2 Delivery Device Adult Vent; PEEP 12; PO2 86 mmHG (75-100); RR 20; SITE Art Line; SO2 95 % (95-99); Total Carbon Dioxide 25 mmol/L; pCO2 53.2 mmHg (35-45); pH 7.25 (7.35-7.45)
[2023-09-19] MEDS: Heparin 10,000 UNITS/10 ML Vial IV (11:19)
--- NOTE | 2023-09-19 11:25 | RAD_ITS ---
STUDY: X-RAY CHEST REASON FOR EXAM: Male, 73 years old. Temporary dialysis catheter and OG placement TECHNIQUE: Single AP portable view of the chest. COMPARISON: 09/19/2023 at 06 100 FINDINGS: Interval placement of left internal jugular temporary dialysis catheter with tip of the catheter overlying the right brachycephalic vein with no pneumothorax. Interval retraction of the right internal jugular central line with tip of the catheter overlying the right brachiocephalic vein. Endotracheal tube and nasogastric tube which are unchanged. The lungs are clear and expanded. There is no demonstrated pleural abnormality. There is moderate cardiac enlargement. Normal mediastinum and vita. Normal visualized pulmonary arteries. Normal visualized aortic arch and descending thoracic aorta. Normal visualized thoracic spine. Normal visualized ribs, clavicles, and shoulders. There is no demonstrated abnormality of the visualized soft tissue structures of the upper abdomen. RAD/Chest 1 View (Portable) IMPRESSION: 1. Interval placement of left internal jugular tunneled dialysis catheter with tip of the catheter overlying the left brachiocephalic vein with no pneumothorax. 2. Interval retraction of right internal jugular central line with tip of the catheter overlying the right brachycephalic vein. 3. Endotracheal tube and nasogastric tube which are unchanged. 4. No active pulmonary disease. 5. Cardiomegaly. Electronically Signed: Demario Mathew MD at 12:31 EST ,
[2023-09-19] MEDS: Pantoprazole Sodium 40 MG in 0.9% Normal Saline (100mL MB+) 100 ML 330 MG IV (11:58)
--- NOTE | 2023-09-19 12:03 | PCM.CONS.C ---
Assessment & Plan Assessment/Plan (1) Cardiac arrest with pulseless electrical activity: PLAN: In the setting of respiratory acidosis with hypoxemia and also hyperkalemia. Successfully resuscitated. Requiring vasopressor agents for hemodynamic support. (2) Dilated cardiomyopathy: PLAN: LVEF 10 to 15%. Appears fluid volume overloaded. Start low-dose dobutamine. CVVHD being contemplated. (3) Mitral regurgitation: PLAN: Moderate mitral regurgitation noted on echocardiogram. Monitor. (4) Tricuspid regurgitation: PLAN: Severe tricuspid regurgitation with moderate pulmonary hypertension. (5) Sick sinus syndrome: PLAN: Paroxysmal atrial flutter/fibrillation. Marked sinus bradycardia in the setting of hypoxemia and hyperkalemia. Presently sinus tachycardia with first-degree AV block. Continue to monitor. (6) Shock circulatory: PLAN: On Levophed infusion for hemodynamic support. Also start on low-dose dobutamine. (7) Hyperkalemia: PLAN: Treat as per critical care/internal medicine. (8) Acute renal failure (ARF): PLAN: Consider nephrology consult. Being contemplated for CVVHD. (9) Bacterial pneumonia: PLAN: As per critical care/pulmonology. (10) COVID-19: PLAN: As per critical care. (11) Medical non-compliance: PLAN: Plan Overall prognosis is guarded. HPI Consult Data Date of Consult: 09/19/23 HPI Narrative Reason for Consultation: Tachy-peggy syndrome HPI Narrative: This patient has past medical history significant for paroxysmal atrial fibrillation, hypertension, dyslipidemia, COPD, uncontrolled diabetes mellitus and medical noncompliance. Apparently he presented to the emergency room with complaints of a blister on his leg. He also complained of shortness of breath with chills. Noted to be in atrial flutter. Chest x-ray showed bilateral pneumonia. Also COVID-19 positive. He was admitted to the hospital. An echocardiogram was done. It showed ejection fraction of 10 to 15%. Patient was then also noted to have significant sinus bradycardia. His respiratory status worsened last night and he was intubated early this morning. Shortly thereafter, he has had a PEA cardiac arrest. He was given epinephrine and atropine. Spontaneous circulation was restored. Presently he is mechanically ventilated. Requiring vasopressor agents for hemodynamic support. Noted to be hyperkalemic. Also acute renal failure. [facility] Medical History Anxiety Atrial fibrillation Atrial flutter COPD (chronic obstructive pulmonary disease) Diabetes mellitus Diabetic neuropathy Hyperlipidemia associated with type 2 diabetes mellitus Hypertension Stenosis of right internal carotid artery Home Medications gabapentin 100 mg capsule 100 mg PO TID 09/17/23 [History Last Taken 09/17/23] hydroxyzine pamoate 25 mg capsule 25 mg PO TID 09/17/23 [History Last Taken Unknown] lorazepam 0.5 mg tablet (Ativan) 0.5 mg PO DAILY 09/17/23 [History Last Taken 09/17/23] losartan 50 mg tablet (Cozaar) 50 mg PO DAILY 09/17/23 [History Last Taken 09/17/23] sertraline 50 mg tablet (Zoloft) 50 mg PO DAILY 09/17/23 [History Last Taken Unknown] Allergy/AdvReac Type Severity Reaction Status Date / Time No Known Allergies Allergy Verified 09/17/23 15:28 Social History household members: significant other current occupational status: retired Smoking Status: Heavy Smoker (>10/day) Physical Exam Narrative Sedated. On mechanical ventilation. Bilateral lower extremity edema. Risk Stratification Risk Stratification Applicable: No Objective Data Vital Signs: Vital Signs Temp Pulse Resp BP Pulse Ox O2 Del Method O2 Flow Rate 97.5 F L 75 20 H 127/87 H 95 Mechanical Ventilator 15 09/19/23 04:00 09/19/23 11:13 09/19/23 11:13 09/19/23 07:45 09/19/23 11:13 09/19/23 07:24 09/19/23 01:45 FiO2 100 09/19/23 11:13 Oxygen Flow Rate (L/min) 15 Oxygen Delivery Method Mechanical Ventilator Weight: 260 lb 2.327 oz Body Mass Index (BMI) 38.4 Intake & Output: Intake and Output for Last 24 Hours 09/17/23 09/18/23 09/19/23 23:59 23:59 23:59 Intake Total 702.16 / 904.66 1374.84 / 1374.84 706.14 / 706.14 Output Total 850 / 1000 500 / 1040 540 / 540 Balance -147.84 / -95.34 874.84 / 334.84 166.14 / 166.14 Lab / Micro Data 09/19/23 06:03 09/19/23 06:03 Labs: Laboratory Results - last 24 hr 09/18/23 11:42: POC Glucose 328 H 09/18/23 15:15: Sodium 137, Potassium 5.9 H, Chloride 106, Carbon Dioxide 22.0, Anion Gap 9, BUN 35 H, Creatinine 1.58 H, Estim Creat Clear Calc 42.26, Est GFR (MDRD) Af Amer 56 L, Est GFR (MDRD) Non-Af 46 L, BUN/Creatinine Ratio 22.2 H, Glucose 214 H, Calcium 9.0 09/18/23 17:19: POC Glucose 166 H 09/18/23 22:20: Sodium 139, Potassium 6.2 H*, Chloride 107, Carbon Dioxide 20.0 L, Anion Gap 12, BUN 37 H, Creatinine 1.74 H, Estim Creat Clear Calc 38.37, Est GFR (MDRD) Af Amer 50 L, Est GFR (MDRD) Non-Af 41 L, BUN/Creatinine Ratio 21.3 H, Glucose 139 H, Calcium 9.0 09/19/23 06:03: WBC 17.7 H, RBC 5.30, Hgb 13.6, Hct 46.4, MCV 87.5, MCH 25.7 L, MCHC 29.3 L, RDW Std Deviation 55.3 H, RDW Coeff of Bettie 18.0 H, Plt Count 92 L, MPV 10.9, Immature Gran % (Auto) 1.800 H, Neut % (Auto) 84.2 H, Lymph % (Auto) 8.0 L, Kay % (Auto) 5.7, Eos % (Auto) 0.0, Baso % (Auto) 0.3, Absolute Neuts (auto) 14.9 H, Absolute Lymphs (auto) 1.41, Nucleated RBC % 0, Platelet Estimate MOD DEC, Sodium 139, Potassium 6.2 H*, Chloride 105, Carbon Dioxide 24.0, Anion Gap 10, BUN 50 H, Creatinine 2.59 H, Estim Creat Clear Calc 25.78, Est GFR (MDRD) Af Amer 32 L, Est GFR (MDRD) Non-Af 26 L, BUN/Creatinine Ratio 19.3, Glucose 238 H, Calcium 8.1 L, Phosphorus 9.5 H*, Magnesium 2.5, Total Bilirubin 1.70 H, AST 1866 H, ALT 1173 H, Alkaline Phosphatase 90, Total Creatine Kinase 188, Total Protein 5.5 L, Albumin 2.4 L, Globulin 3.1, Albumin/Globulin Ratio 0.8 L, Triglycerides 111 09/19/23 06:03: Triglycerides 108, Cholesterol 92, LDL Cholesterol 49, VLDL Cholesterol 22, HDL Cholesterol 21 L 09/19/23 06:39: POC Glucose 207 H Micro: Microbiology 09/17/23 18:01 Urine, Clean Catch Urine Culture - Preliminary Culture exhibits no growth. ABG Data ABG results: ABG 09/19/23 09/19/23 09/19/23 00:57 03:26 06:37 Specimen Type JENI ART ART Sample Site Not entered L Radial L Radial pH 7.14 L* 7.12 L* Bicarbonate Actual 18.2 L 18.9 L Total CO2 20 21 Base Excess -11 L -10 L O2 Saturation 94 L 94 L O2 % 70.0 100.0 100.0 ABG pCO2 53.4 H 58.4 H ABG pO2 91 96 Gennaro Test Positive Positive VBG pH 7.09 L* VBG pO2 98 H VBG HCO3 19 L VBG Total CO2 21 L VBG O2 Sat (Calc) 94 H VBG Base Excess -11 L POC Mix VBG pCO2 Pt Tmp 63.2 H Respiration Rate 16 16 O2 Delivery Device BiPAP Adult Vent Adult Vent Vent Mode AC AC Tidal Volume 450.0 450.0 450.0 POC PEEP 10 5 12 Crit Call To/Read Back Yes Yes Yes Blood Gas Notified Whom Redmano Blood Gas Notified Time 01:00:17 03:28:25 06:38:40 09/19/23 10:59 Specimen Type ART Sample Site Art Line pH 7.25 L Bicarbonate Actual 23.2 Total CO2 25 Base Excess -4 L O2 Saturation 95 O2 % 100.0 ABG pCO2 53.2 H ABG pO2 86 Gennaro Test VBG pH VBG pO2 VBG HCO3 VBG Total CO2 VBG O2 Sat (Calc) VBG Base Excess POC Mix VBG pCO2 Pt Tmp Respiration Rate 20 O2 Delivery Device Adult Vent Vent Mode AC Tidal Volume 450.0 POC PEEP 12 Crit Call To/Read Back Blood Gas Notified Whom Blood Gas Notified Time Cardiology Labs/Tests 09/18/23 15:15: Sodium 137, Potassium 5.9 H, Chloride 106, Carbon Dioxide 22.0, Anion Gap 9, BUN 35 H, Creatinine 1.58 H, Est GFR (MDRD) Af Amer 56 L, Est GFR (MDRD) Non-Af 46 L, BUN/Creatinine Ratio 22.2 H, Glucose 214 H, Calcium 9.0 09/18/23 22:20: Sodium 139, Potassium 6.2 H*, Chloride 107, Carbon Dioxide 20.0 L, Anion Gap 12, BUN 37 H, Creatinine 1.74 H, Est GFR (MDRD) Af Amer 50 L, Est GFR (MDRD) Non-Af 41 L, BUN/Creatinine Ratio 21.3 H, Glucose 139 H, Calcium 9.0 09/19/23 00:57: VBG pH 7.09 L*, VBG pO2 98 H, VBG HCO3 19 L, VBG O2 Sat (Calc) 94 H, VBG Base Excess -11 L 09/19/23 03:26: pH 7.14 L*, Bicarbonate Actual 18.2 L, Base Excess -11 L, O2 Saturation 94 L, ABG pCO2 53.4 H, ABG pO2 91, Gennaro Test Positive 09/19/23 06:03: WBC 17.7 H, RBC 5.30, Hgb 13.6, Hct 46.4, MCV 87.5, MCH 25.7 L, MCHC 29.3 L, Plt Count 92 L, MPV 10.9, Immature Gran % (Auto) 1.800 H, Neut % (Auto) 84.2 H, Lymph % (Auto) 8.0 L, Kay % (Auto) 5.7, Eos % (Auto) 0.0, Baso % (Auto) 0.3, Absolute Neuts (auto) 14.9 H, Nucleated RBC % 0, Sodium 139, Potassium 6.2 H*, Chloride 105, Carbon Dioxide 24.0, Anion Gap 10, BUN 50 H, Creatinine 2.59 H, Est GFR (MDRD) Af Amer 32 L, Est GFR (MDRD) Non-Af 26 L, BUN/Creatinine Ratio 19.3, Glucose 238 H, Calcium 8.1 L, Phosphorus 9.5 H*, Magnesium 2.5, Total Bilirubin 1.70 H, Triglycerides 111 09/19/23 06:03: Triglycerides 108, Cholesterol 92, LDL Cholesterol 49, VLDL Cholesterol 22, HDL Cholesterol 21 L 09/19/23 06:37: pH 7.12 L*, Bicarbonate Actual 18.9 L, Base Excess -10 L, O2 Saturation 94 L, ABG pCO2 58.4 H, ABG pO2 96, Gennaro Test Positive 09/19/23 10:59: pH 7.25 L, Bicarbonate Actual 23.2, Base Excess -4 L, O2 Saturation 95, ABG pCO2 53.2 H, ABG pO2 86 Rhythm: EKG: ECHO: Stress Test: Cardiac Cath: PCI: CT Surgery: Holter monitor: EPS: PPM: CXR: Chest CT Scan: Radiography Diagnostic Testing: Radiology Impression Venous Doppler Study 09/18/23 02:03 Interpretation Summary No evidence for acute deep venous thrombosis bilateral lower extremities with patent and compressible bilateral great saphenous veins. Covid abbreviated, technically difficult exam Ordering Physician: Donn Tirado Referring Physician: N/A Performed By: Vern Angel RVT Echocardiogram 09/18/23 09:05 Interpretation Summary Estimated LVEF 10 to 15%. Severe global LV systolic dysfunction Severe global right ventricular systolic dysfunction. Moderate (2+) mitral valve insufficiency. Severe (4+) tricuspid valve insufficiency. Right ventricular systolic pressure estimated to be 49 mmHg. Mild (1+) aortic valve insufficiency. There is severe biatrial dilatation. Ordering Physician: Noemy Mcintosh Performed By: Mikel White RCS Chest X-Ray 09/19/23 02:10 IMPRESSION: 1. Endotracheal tube tip approximately 3.0 cm from the mikey. 2. Diffuse bilateral interstitial and airspace opacities consistent with edema and/or pneumonia. 3. Small right pleural effusion. 4. Stable cardiomegaly. Electronically Signed: Francisco Javier Ross DO at 3:33 EST , Chest X-Ray 09/19/23 05:00 IMPRESSION: 1. Right IJ central venous catheter tip oriented cephalad. Recommend replacing. 2. Small bilateral pleural effusions. 3. Left lower lung atelectasis versus infiltrates. 4. Stable cardiomegaly. Electronically Signed: Francisco Javier Ross DO at 6:05 EST , Chest X-Ray 09/19/23 06:00 IMPRESSION: Right IJ central venous catheter in good position with the tip at the superior vena cava. Electronically Signed: Francisco Javier Ross DO at 7:33 EST ,
[2023-09-19] MEDS: Remdesivir 100 MG in 0.9% Normal Saline (250mL Bag) 230 ML 250 MG IV (12:27)
--- NOTE | 2023-09-19 13:13 | PCM.OP.PRO ---
Procedure Report Date of Procedure: 09/19/23 Arterial Line Procedure Note INDICATION: PROCEDURE DOCUMENT ADVISOR: Alcon Man MD Consent: The procedure was emergent, the patient was unable to provide consent, and a designee was not immediately available. PROCEDURE SUMMARY: A time out was performed. My hands were washed immediately prior to the procedure. I wore a surgical cap, mask and sterile gloves throughout the procedure. After an Gennaro test was performed to ensure adequate perfusion, the _ (R) wrist was prepped using chlorhexidine scrub and draped in sterile fashion using a three quarter sheet drape and sterile towels. The radial pulse was identified on US and the wrist was positioned in the usual fashion. Under US guidance, using the Arrow Radial Arterial Line Kit, a needle was inserted into the radial artery. Arterial blood was seen to pulsate in the flash chamber. The internal guidewire was advanced easily into the radial artery. The catheter was then advanced over the wire and the needle and wire were withdrawn. The catheter was sutured in place. A sterile opsite was placed over the catheter at the insertion site. The patient tolerated the procedure without any hemodynamic compromise. At the time of procedure completion, the catheter was connected to the school lunch monitor and calibrated. Appropriate waveform and blood pressure tracing was observed. Estimated blood loss is <5cc. Procedures Hospitalists Procedures: [id number] Insertion Catheter Artery
--- NOTE | 2023-09-19 13:14 | PRO.PCM_ITS ---
Procedure Report Date of Procedure: 09/19/23 Hemodialysis Catheter Procedure Note INDICATION: Need for CRRT, SHRUTHI, HyperK Consent: The procedure was emergent, the patient was unable to provide consent, and a designee was not immediately available. PROCEDURE SUMMARY: A time out was performed. My hands were washed immediately prior to the procedure. I wore a surgical cap, mask with protective eyewear, full gown and sterile gloves throughout the procedure. The patient was placed in Trendelenburg position. LEFT chest region was prepped using chlorhexidine scrub and draped in sterile fashion using a full drape and sterile probe cover and sterile gel employed. The medial and lateral heads of the s ternocleidomastoid muscle were identified as was the carotid pulse. The Internal Jugular vein was identified using the ultrasound. Anesthesia was achieved over the vein using 1% lidocaine. Using real-time out of plane guidance, the introducer needle was inserted into the Internal Jugular vein under direct ultrasound visualization. Venous blood was withdrawn. The syringe was removed and a guidewire was advanced into the introducer needle. The guidewire was visualized in the Internal Jugular Vein by ultrasound. A small incision was made at the skin surface with a scalpel and the introducer needle was exchanged for a dilator over the guidewire. After appropriate dilation was obtained, the dilator was exchanged over the wire for a vas cath. The wire was removed and the catheter was sutured in place at 16 cm. A sterile sorbaview shield was placed over the catheter at the insertion site. The patient tolerated the procedure without any hemodynamic compromise. At time of procedur e completion, all ports aspirated and flushed properly. Post-procedure chest x-ray is pending at this time. Estimated blood loss is 5cc. Procedures Hospitalists Procedures: [id number] Insert Non-tunnel CV Cath
--- NOTE | 2023-09-19 13:16 | EX.PCM.CONCC ---
Assessment & Plan Assessment/Plan (1) Acute renal failure (ARF): (2) Hyperkalemia: (3) Shock circulatory: (4) Sick sinus syndrome: (5) Tricuspid regurgitation: (6) Mitral regurgitation: (7) Dilated cardiomyopathy: (8) Cardiomyopathy: (9) Cardiac arrest with pulseless electrical activity: (10) Acute exacerbation of COPD with asthma: (11) Chronic atrial fibrillation with rapid ventricular response: (12) Bacterial pneumonia: (13) COVID-19: (14) Atrial flutter: (15) Shock liver: PLAN: Plan Assessment Acute hypoxic and hypercapnic respiratory failure secondary to acute COVID-19 infection with possible superimposed bacterial pneumonia/combined right-sided and left-sided heart failure PEA cardiac arrest Septic/cardiogenic shock Acute combined heart failure SHRUTHI Refractory HyperK Shock liver Paroxysmal atrial fibrillation with RVR/suspected sick sinus syndrome LLE cellulitis Chronic conditions: COPD, Obesity BMI 38.4, CHF, A fib, DM II, diabetic neuropathy, CKD. these conditions complicate treatment, prognosis and care Plan Patient was on Levophed drip after his cardiac arrest. He had refractory hyperkalemia did not respond to medical treatment and was thus started emergently on CRRT Was initially on bicarb drip his bicarb improved and bicarb drip was discontinued. multiple adjustments to ventilator done today. Patient was severely hypoxic requiring PEEP of 12 and FiO2 of 100% Cultures obtained continue antibiotics Severe is not an option given patient's kidney and liver failure Discussed with cardiology plan was to start patient on dobutamine drip however family elected to proceed with palliative extubation and comfort care measures only Patient's daughter who lives in [place] presented to the ICU and reported that the patient has 2 daughters herself and her sister who lives in [place]. The patient's second daughter was on the phone as we discussed the patient's clinical status and overnight events. The 2 daughters noted that the patient is from their mother and they are the only children he has. They stated that the patient would not want to be on life support and would not want any aggressive measures. His CODE STATUS was changed to DNR and later they decided to palliatively extubate the patient. Patient's RN was also involved in these conversations. There has been some discussion about assigning the patient's girlfriend to be DPOA however patient never signed these papers. He also stated at the time and confirmed that he had two children. Discussed with social work since the patient never signed paperwork to officially assign his girlfriend as the DPOA legally his daughters are the decision-makers. I spent 50 minutes of critical care time excluding the procedure time. I reviewed lab work, images, previous records and medication list. HPI Consult Data Date of Consult: 09/19/23 HPI Narrative HPI Narrative: ANNA PEREYRA, is a 73 M with past medical history of sick sinus syndrome, obesity BMI 38.4, A-fib, hypertension, diabetes, diabetic nephropathy CKD, COPD and noncompliance who presented yesterday with right leg cellulitis. He was found to be COVID-positive. He was also volume overloaded and was found to have a EF of 15%. Patient apparently had run out of his usual meds for some time due to insurance issues. Patient deteriorated last night and required to be intubated after which he went into cardiac arrest and required CPR for 6 minutes. Patient was also found to be hyperkalemic and acute kidney failure with minimal urine output. Upon evaluation this morning he was on 30 mics of levo he had episodes of bradycardia that responded to epi pushes. Given his persistent hyperkalemia cardiac arrest and arrhythmias patient was made to emergently start CRRT. There was no family available and only a girlfriend and her son were at bedside. Vas-Cath and dialysis were started emergently. Later through the day patient's daughter who lives in [place] presented to the ICU and reported that the patient has 2 daughters herself and her sister who lives in [place]. The patient's second daughter was on the phone as we discussed the patient's clinical status and overnight events. The 2 daughters noted that the patient is from their mother and they are the only children he has. They stated that the patient would not want to be on life support and would not want any aggressive measures. His CODE STATUS was changed to DNR and later they decided to palliatively extubate the patient. Social work and patient's RN were also involved in these conversations. There has been some discussion about assigning the patient's girlfriend to be DPOA however patient never signed these papers. He also stated at the time and confirmed that he had to children. Discussed with social work since the patient never signed paperwork to officially assign his girlfriend as the DPOA legally his daughters are the decision-makers. [facility] Medical History Anxiety Atrial fibrillation Atrial flutter COPD (chronic obstructive pulmonary disease) Diabetes mellitus Diabetic neuropathy Hyperlipidemia associated with type 2 diabetes mellitus Hypertension Stenosis of right internal carotid artery Home Medications gabapentin 100 mg capsule 100 mg PO TID 09/17/23 [History Last Taken 09/17/23] hydroxyzine pamoate 25 mg capsule 25 mg PO TID 09/17/23 [History Last Taken Unknown] lorazepam 0.5 mg tablet (Ativan) 0.5 mg PO DAILY 09/17/23 [History Last Taken 09/17/23] losartan 50 mg tablet (Cozaar) 50 mg PO DAILY 09/17/23 [History Last Taken 09/17/23] sertraline 50 mg tablet (Zoloft) 50 mg PO DAILY 09/17/23 [History Last Taken Unknown] Allergy/AdvReac Type Severity Reaction Status Date / Time No Known Allergies Allergy Verified 09/17/23 15:28 Social History household members: significant other current occupational status: retired Smoking Status: Heavy Smoker (>10/day) ROS ROS Narrative Unable to obtain patient intubated and sedated Physical Exam Narrative General obese intubated and sedated critically ill HEENT. Normocephalic atraumatic, pupils equal and reactive Respiratory adequate breath sounds, bilateral basal crackles Cardiac S1-S2, irregular rate and rhythm GI abdomen soft obese with ascites MSK bilateral lower extremity edema Neuro intubated and sedated, he was able to move all extremities when sedation was weaned Lab / Micro Data 09/19/23 06:03 09/19/23 06:03 Labs: Laboratory Results - last 24 hr 09/18/23 15:15: Sodium 137, Potassium 5.9 H, Chloride 106, Carbon Dioxide 22.0, Anion Gap 9, BUN 35 H, Creatinine 1.58 H, Estim Creat Clear Calc 42.26, Est GFR (MDRD) Af Amer 56 L, Est GFR (MDRD) Non-Af 46 L, BUN/Creatinine Ratio 22.2 H, Glucose 214 H, Calcium 9.0 09/18/23 17:19: POC Glucose 166 H 09/18/23 22:20: Sodium 139, Potassium 6.2 H*, Chloride 107, Carbon Dioxide 20.0 L, Anion Gap 12, BUN 37 H, Creatinine 1.74 H, Estim Creat Clear Calc 38.37, Est GFR (MDRD) Af Amer 50 L, Est GFR (MDRD) Non-Af 41 L, BUN/Creatinine Ratio 21.3 H, Glucose 139 H, Calcium 9.0 09/19/23 06:03: WBC 17.7 H, RBC 5.30, Hgb 13.6, Hct 46.4, MCV 87.5, MCH 25.7 L, MCHC 29.3 L, RDW Std Deviation 55.3 H, RDW Coeff of Bettie 18.0 H, Plt Count 92 L, MPV 10.9, Immature Gran % (Auto) 1.800 H, Neut % (Auto) 84.2 H, Lymph % (Auto) 8.0 L, [place] % (Auto) 5.7, Eos % (Auto) 0.0, Baso % (Auto) 0.3, Absolute Neuts (auto) 14.9 H, Absolute Lymphs (auto) 1.41, Nucleated RBC % 0, Platelet Estimate MOD DEC, Sodium 139, Potassium 6.2 H*, Chloride 105, Carbon Dioxide 24.0, Anion Gap 10, BUN 50 H, Creatinine 2.59 H, Estim Creat Clear Calc 25.78, Est GFR (MDRD) Af Amer 32 L, Est GFR (MDRD) Non-Af 26 L, BUN/Creatinine Ratio 19.3, Glucose 238 H, Calcium 8.1 L, Phosphorus 9.5 H*, Magnesium 2.5, Total Bilirubin 1.70 H, AST 1866 H, ALT 1173 H, Alkaline Phosphatase 90, Total Creatine Kinase 188, Total Protein 5.5 L, Albumin 2.4 L, Globulin 3.1, Albumin/Globulin Ratio 0.8 L, Triglycerides 111 09/19/23 06:03: Triglycerides 108, Cholesterol 92, LDL Cholesterol 49, VLDL Cholesterol 22, HDL Cholesterol 21 L 09/19/23 06:39: POC Glucose 207 H Micro: Microbiology 09/19/23 02:55 Sputum, Induced/Lukens Gram Stain - Final 09/17/23 18:01 Urine, Clean Catch Urine Culture - Preliminary Culture exhibits no growth. ABG Data ABG results: ABG 09/19/23 09/19/23 09/19/23 00:57 03:26 06:37 Specimen Type JENI ART ART Sample Site Not entered L Radial L Radial pH 7.14 L* 7.12 L* Bicarbonate Actual 18.2 L 18.9 L Total CO2 20 21 Base Excess -11 L -10 L O2 Saturation 94 L 94 L O2 % 70.0 100.0 100.0 ABG pCO2 53.4 H 58.4 H ABG pO2 91 96 Gennaro Test Positive Positive VBG pH 7.09 L* VBG pO2 98 H VBG HCO3 19 L VBG Total CO2 21 L VBG O2 Sat (Calc) 94 H VBG Base Excess -11 L POC Mix VBG pCO2 Pt Tmp 63.2 H Respiration Rate 16 16 O2 Delivery Device BiPAP Adult Vent Adult Vent Vent Mode AC AC Tidal Volume 450.0 450.0 450.0 POC PEEP 10 5 12 Crit Call To/Read Back Yes Yes Yes Blood Gas Notified Whom Felix Blood Gas Notified Time 01:00:17 03:28:25 06:38:40 09/19/23 10:59 Specimen Type ART Sample Site Art Line pH 7.25 L Bicarbonate Actual 23.2 Total CO2 25 Base Excess -4 L O2 Saturation 95 O2 % 100.0 ABG pCO2 53.2 H ABG pO2 86 Gennaro Test VBG pH VBG pO2 VBG HCO3 VBG Total CO2 VBG O2 Sat (Calc) VBG Base Excess POC Mix VBG pCO2 Pt Tmp Respiration Rate 20 O2 Delivery Device Adult Vent Vent Mode AC Tidal Volume 450.0 POC PEEP 12 Crit Call To/Read Back Blood Gas Notified Whom Blood Gas Notified Time Imagaing Radiology Impression Venous Doppler Study 09/18/23 02:03 Interpretation Summary No evidence for acute deep venous thrombosis bilateral lower extremities with patent and compressible bilateral great saphenous veins. Covid abbreviated, technically difficult exam Ordering Physician: Donn Tirado Referring Physician: N/A Performed By: Vern Angel, RVT Echocardiogram 09/18/23 09:05 Interpretation Summary Estimated LVEF 10 to 15%. Severe global LV systolic dysfunction Severe global right ventricular systolic dysfunction. Moderate (2+) mitral valve insufficiency. Severe (4+) tricuspid valve insufficiency. Right ventricular systolic pressure estimated to be 49 mmHg. Mild (1+) aortic valve insufficiency. There is severe biatrial dilatation. Ordering Physician: Noemy Mcintosh Performed By: Mikel White RCS Chest X-Ray 09/19/23 02:10 IMPRESSION: 1. Endotracheal tube tip approximately 3.0 cm from the mikey. 2. Diffuse bilateral interstitial and airspace opacities consistent with edema and/or pneumonia. 3. Small right pleural effusion. 4. Stable cardiomegaly. Electronically Signed: Francisco Javier Ross DO at 3:33 EST , Chest X-Ray 09/19/23 05:00 IMPRESSION: 1. Right IJ central venous catheter tip oriented cephalad. Recommend replacing. 2. Small bilateral pleural effusions. 3. Left lower lung atelectasis versus infiltrates. 4. Stable cardiomegaly. Electronically Signed: Francisco Javier Ross DO at 6:05 EST , Chest X-Ray 09/19/23 06:00 IMPRESSION: Right IJ central venous catheter in good position with the tip at the superior vena cava. Electronically Signed: Francisco Javier Ross DO at 7:33 EST , Chest X-Ray 09/19/23 11:25 IMPRESSION: 1. Interval placement of left internal jugular tunneled dialysis catheter with tip of the catheter overlying the left brachiocephalic vein with no pneumothorax. 2. Interval retraction of right internal jugular central line with tip of the catheter overlying the right brachycephalic vein. 3. Endotracheal tube and nasogastric tube which are unchanged. 4. No active pulmonary disease. 5. Cardiomegaly. Electronically Signed: Demario Mathew MD at 12:31 EST , Charges/Coding Procedures Hospitalists Procedures: [id number] Critical Care 1st Hr
[2023-09-19] MEDS: PUREFLOW B SOLUTION 2K 5,000 ML BAG 9 BAG PF (13:38)
--- NOTE | 2023-09-19 15:47 | PCM.RX.CS ---
Consult Antibiotic Management Pharmacy has been consulted to manage selected antibiotic: Vancomycin Type of Intervention Type of Consult: New start Suspected Infection Suspected Infection: Pneumonia Labs Labs: Sodium 139 mmol/L (136-145) 09/19/23 06:03 Potassium 6.2 mmol/L (3.5-5.1) H* 09/19/23 06:03 Chloride 105 mmol/L (98-107) 09/19/23 06:03 Carbon Dioxide 24.0 mmol/L (21.0-32.0) 09/19/23 06:03 Anion Gap 10 (5-15) 09/19/23 06:03 BUN 50 mg/dL (7-18) H 09/19/23 06:03 Creatinine 2.59 mg/dL (0.70-1.30) H 09/19/23 06:03 Est GFR (MDRD) Af Amer 32 mL/min (>60) L 09/19/23 06:03 Est GFR (MDRD) Non-Af 26 mL/min (>60) L 09/19/23 06:03 BUN/Creatinine Ratio 19.3 RATIO (10-20) 09/19/23 06:03 Glucose 238 mg/dL (74-106) H 09/19/23 06:03 Microbiology Microbiology: Microbiology 09/19/23 02:55 Sputum, Induced/Lukens Gram Stain - Final 09/17/23 18:01 Urine, Clean Catch Urine Culture - Preliminary Culture exhibits no growth. 09/17/23 23:30 Urine, Clean Catch Legionella Antigen - Final 09/17/23 23:30 Urine, Clean Catch Streptococcus pneumoniae Antigen (M - Final 09/17/23 17:27 Mucosa - Nose SARS-CoV-2, Influenza & RSV (PCR) - Final SARS-CoV-2 (COVID 19) Goal Trough Goal Trough: 15-20 mcg/mL Pharmacy Plan for Drug Dosing Pharmacy Plan for Drug Dosing: NEW START IV VANCOMYCIN Consulting Physician: Dr. Wendi Mcintosh Indication: Respiratory failure, bacterial pneumonia Goal Trough: 15-20 SrCr: 2.59. NOTE: patient started on CRRT this AM. Verified with floor/nursing CrCl: on CRRT at time of initiation Comments: Loading dose of 2000mg IV x1 ordered and administered 09/19/23 @0914 Vancomycin Dose: 1250mg IV Q12hrs while on CRRT Pending Level: 09/20/23 @0830, prior to 3rd total dose per CRRT protocol Pharmacy Service will continue to monitor and adjust dosing as required.
--- NOTE | 2023-09-19 17:00 | NURSING ---
Patient's significant other named Pura, stated she was the patient's girlfriend , here this morning from approximately 0800 to 1230. She was given update on POC and spent a little time with patient this morning. She also stated that patient has daughters, but was not sure where they lived. Pura's son was able to get a hold of of patient's daughters. Pura and her son then left. Patient's daughter Any arrived this afternoon and was given update on patient and the POC. Any and her sister, patient's other daughter, Leyla, who was on speaker phone listening to POC. Leyla stated that they wish patient to be made DNR-CC. Also that Leyla was the patient's healthcare POA. When this RN attempted to educated on DNR status, Leyla stated that she was a nurse and knew what it was and that they want all things removed. This RN clarified that family wanted the dialysis to be stopped and the ET tube and ventilator to be removed and stopped as well. Both of the patient's daughters agreed. This RN spoke with Dr. Man and director of social work about situation. Dr. Man spoke with daughter's as well. Decided to withdraw care from patient. This RN asked daughter's if it was alright to call Pura with update they refused and stated that they did not want her notified at this time.
--- NOTE | 2023-09-19 17:27 | NURSING ---
Patient's family stated that they changed their minds and are okay with Pura coming in to say her goodbyes . Pura notified at this time.
[2023-09-19] MEDS: Morphine 2 MG/ML Syringe IV (17:58)
--- NOTE | 2023-09-19 18:45 | CON.PCM.RE_ITS ---
HPI Consult Data Date of Consult: 09/19/23 HPI Narrative Reason for Consultation: Acute kidney injury HPI Narrative: The patient is a 73-year-old man with past history of hypertension, type 2 diabetes mellitus, COPD, atrial fibrillation, PAD, and chronic right lower extremity wound. The patient presented to hospital on 09/17/2023 with complaint of increasing pain of the right lower extremity wound and feeling unwell. The patient tested positive for COVID-19 on presentation and was found to have acute hypoxic respiratory failure due to COVID-19 and bacterial pneumonia on presentation. The patient developed PEA arrest on the night of 09/18/2023. He has has subsequently been intubated. He is in shock and is requiring IV vasopressor. Nephrology is consulted because of SHRUTHI. Serum creatinine has increased from 1.09 mg/dL on 09/17/2023 up to 2.59 mg/dL today. The patient also has hyperkalemia potassium of 6.2. He has been refractory to high-dose IV loop diuretic. [facility] Medical History Anxiety Atrial fibrillation Atrial flutter COPD (chronic obstructive pulmonary disease) Diabetes mellitus Diabetic neuropathy Hyperlipidemia associated with type 2 diabetes mellitus Hypertension Stenosis of right internal carotid artery Home Medications gabapentin 100 mg capsule 100 mg PO TID 09/17/23 [History Last Taken 09/17/23] hydroxyzine pamoate 25 mg capsule 25 mg PO TID 09/17/23 [History Last Taken Unknown] lorazepam 0.5 mg tablet (Ativan) 0.5 mg PO DAILY 09/17/23 [History Last Taken 09/17/23] losartan 50 mg tablet (Cozaar) 50 mg PO DAILY 09/17/23 [History Last Taken 0 09/17/23] sertraline 50 mg tablet (Zoloft) 50 mg PO DAILY 09/17/23 [History Last Taken Unknown] Allergy/AdvReac Type Severity Reaction Status Date / Time No Known Allergies Allergy Verified 09/17/23 15:28 Social History household members: significant other current occupational status: retired Smoking Status: Heavy Smoker (>10/day) ROS ROS Narrative Unable to obtain due to current medical condition. Physical Exam Narrative General: Intubated and sedated on ventilator. HEENT: Normocephalic, atraumatic. Intubated. PERRLA. Neck: Supple, no JVD. Trachea is midline. No thyromegaly or lymphadenopathy. Cardiovascular: Normal S1, S2. No rubs, murmurs, or gallops. Respiratory: Lungs are clear to auscultation bilaterally. No wheezing, rhonchi, or rales. Abdomen: Normal bowel sounds, soft, nontender, no guarding or rebound, no organomegaly. Extremities: No clubbing, cyanosis, or edema. Musculoskeletal: Full passive range of motion, no joint swelling. Psychiatric: Normal mood and affect. Skin: Warm and dry, no rash. Neurologic: Cranial nerve II to XII are grossly intact. No focal neurologic deficits. Lab / Micro Data 09/19/23 06:03 09/19/23 06:03 Labs: Laboratory Results - last 24 hr 09/18/23 22:20: Sodium 139, Potassium 6.2 H*, Chloride 107, Carbon Dioxide 20.0 L, Anion Gap 12, BUN 37 H, Creatinine 1.74 H, Estim Creat Clear Calc 38.37, Est GFR (MDRD) Af Amer 50 L, Est GFR (MDRD) Non-Af 41 L, BUN/Creatinine Ratio 21.3 H , Glucose 139 H, Calcium 9.0 09/19/23 06:03: WBC 17.7 H, RBC 5.30, Hgb 13.6, Hct 46.4, MCV 87.5, MCH 25.7 L, MCHC 29.3 L, RDW Std Deviation 55.3 H, RDW Coeff of Bettie 18.0 H, Plt Count 92 L, MPV 10.9, Immature Gran % (Auto) 1.800 H, Neut % (Auto) 84.2 H, Lymph % (Auto) 8.0 L, [place] % (Auto) 5.7, Eos % (Auto) 0.0, Baso % (Auto) 0.3, Absolute Neuts (auto) 14.9 H, Absolute Lymphs (auto) 1.41, Nucleated RBC % 0, Platelet Estimate MOD DEC, Sodium 139, Potassium 6.2 H*, Chloride 105, Carbon Dioxide 24.0, Anion Gap 10, BUN 50 H, Creatinine 2.59 H, Estim Creat Clear Calc 25.78, Est GFR (MDRD) Af Amer 32 L, Est GFR (MDRD) Non-Af 26 L, BUN/Creatinine Ratio 19.3, Glucose 238 H, Calcium 8.1 L, Phosphorus 9.5 H*, Magnesium 2.5, Total Bilirubin 1.70 H, AST 1866 H, ALT 1173 H, Alkaline Phosphatase 90, Total Creatine Kinase 188, Total Protein 5.5 L, Albumin 2.4 L, Globulin 3.1, Albumin/Globulin Ratio 0.8 L, Triglycerides 111 09/19/23 06:03: Triglycerides 108, Cholesterol 92, LDL Cholesterol 49, VLDL Cholesterol 22, HDL Cholesterol 21 L 09/19/23 06:39: POC Glucose 207 H Micro: Microbiology 09/19/23 02:55 Sputum, Induced/Lukens Gram Stain - Final ABG Data ABG results: ABG 09/19/23 09/19/23 09/19/23 00:57 03:26 06:37 Specimen Type JENI ART ART Sample Site Not entered L Radial L Radial pH 7.14 L* 7.12 L* Bicarbonate Actual 18.2 L 18.9 L Total CO2 20 21 Base Excess -11 L -10 L O2 Saturation 94 L 94 L O2 % 70.0 100.0 100.0 ABG pCO2 53.4 H 58.4 H ABG pO2 91 96 Gennaro Test Positive Positive VBG pH 7.09 L* VBG pO2 98 H VBG HCO3 19 L VBG Total CO2 21 L VBG O2 Sat (Calc) 94 H VBG Base Excess -11 L POC Mix VBG pCO2 Pt Tmp 63.2 H Respiration Rate 16 16 O2 Delivery Device BiPAP Adult Vent Adult Vent Vent Mode AC AC Tidal Volume 450.0 450.0 450.0 POC PEEP 10 5 12 Crit Call To/Read Back Yes Yes Yes Blood Gas Notified Whom Felix Blood Gas Notified Time 01:00:17 03:28:25 06:38:40 09/19/23 10:59 Specimen Type ART Sample Site Art Line pH 7.25 L Bicarbonate Actual 23.2 Total CO2 25 Base Excess -4 L O2 Saturation 95 O2 % 100.0 ABG pCO2 53.2 H ABG pO2 86 Gennaro Test VBG pH VBG pO2 VBG HCO3 VBG Total CO2 VBG O2 Sat (Calc) VBG Base Excess POC Mix VBG pCO2 Pt Tmp Respiration Rate 20 O2 Delivery Device Adult Vent Vent Mode AC Tidal Volume 450.0 POC PEEP 12 Crit Call To/Read Back Blood Gas Notified Whom Blood Gas Notified Time Imagaing Radiology Impression Chest X-Ray 09/19/23 02:10 IMPRESSION: 1. Endotracheal tube tip approximately 3.0 cm from the mikey. 2. Diffuse bilateral interstitial and airspace opacities consistent with edema and/or pneumonia. 3. Small right pleural effusion. 4. Stable cardiomegaly. Electronically Signed: Francisco Javier Ross DO at 3:33 EST , Chest X-Ray 09/19/23 05:00 IMPRESSION: 1. Right IJ central venous catheter tip oriented cephalad. Recommend replacing. 2. Small bilateral pleural effusions. 3. Left lower lung atelectasis versus infiltrates. 4. Stable cardiomegaly. Electronically Signed: Francisco Javier Ross DO at 6:05 EST , Chest X-Ray 09/19/23 06:00 IMPRESSION: Right IJ central venous catheter in good position with the tip at the superior vena cava. Electronically Signed: Francisco Javier Ross DO at 7:33 EST , Chest X-Ray 09/19/23 11:25 IMPRESSION: 1. Interval placement of left internal jugular tunneled dialysis catheter with tip of the catheter overlying the left brachiocephalic vein with no pneumothorax. 2. Interval retraction of right internal jugular central line with tip of the catheter overlying the right brachycephalic vein. 3. Endotracheal tube and nasogastric tube which are unchanged. 4. No active pulmonary disease. 5. Cardiomegaly. Electronically Signed: Demario Mathew MD at 12:31 EST ,
--- NOTE | 2023-09-20 02:51 | NURSING ---
Pt peggy on telemetry to 20's. 2 RN's in room to assess and reposition patient. Pt asystole while RN's in room, apneic. Confirmed absent heart beat x 1 minute with 2 RN's present. TOD [id number].
--- NOTE | 2023-09-20 03:22 | NURSING ---
pt did not receive any IV fluids or IV medication the last hour of life.
--- NOTE | 2023-09-20 03:43 | NURSING ---
This RN notified daughter, Ana Luisa and girlfriend, Pura of TOD.
--- NOTE | 2023-09-20 03:44 | NURSING ---
Cassy from [facility] called and pt is a deferral, body released
--- NOTE | 2023-09-20 04:14 | PN.HOSP_ITS ---
Hospitalist Note I was contacted by the [employer] that Mr. Eliecer Ledesma that is expected receiving comfort measures. His time of was 2:51 AM.
--- NOTE | 2023-09-20 04:14 | PCM.HOSP.N ---
Hospitalist Note I was contacted by the POSTAL WORKER that Mr. Eliecer Ledesma that is expected receiving comfort measures. His time of was 2:51 AM.
--- NOTE | 2023-09-20 06:57 | EXP.PCM_ITS ---
Preliminary Cause of Preliminary Cause of Preliminary Cause of : COVID-19 pneumonia with septic shock Secondary causes: Systolic heart failure COPD Date of Admission: 09/17/23 Date of : 09/20/23 Principle Diagnosis Problem List: Active and Suspected Problems (Updated 09/19/23 @ 16:[address] Alcon Man MD) Shock liver (Acute) Acute renal failure (ARF) (Acute) Hyperkalemia (Acute) Shock circulatory (Acute) Sick sinus syndrome (Acute) Tricuspid regurgitation (Acute) Mitral regurgitation (Acute) Dilated cardiomyopathy (Acute) Cardiac arrest with pulseless electrical activity (Acute) Cardiomyopathy (Acute) Medical non-compliance (Acute) Cellulitis of right leg (Acute) Bacterial pneumonia (Acute) COVID-19 (Acute) Atrial flutter (Acute) Hospital Course Mr. Ledesma is a 73-year-old male who presented to the emergency department at [facility] on 09/17/2023 with a blister in his right tibial region for wound check. He reported it started hurting yesterday and felt like he had a nail in his tibia but upon presentation it did not hurt at all. He had developed a mildly erythematous pustule. He denies any known trauma. He reports he has a history of atrial fibrillation but has been out of his medications for his A-fib for several months because he could not afford them. He reported that he was previously on something for heart rate control and Eliquis but had not been taking either. He did not have any health insurance but has some now. He has not established with a primary care physician. He also indicated he became quite ill over the last 2 weeks and started with chills and a cough with sputum he had not had fever that he knows of and denies any n ausea or vomiting. He stated he was unable to shake the cold that he had. He had never been tested for anything and had not seen anybody with regards to this. He denied any chest pain but he was complaining of some shortness of breath. He does not typically require oxygen but on presentation his oxygen saturations were 86% on room air. The patient is an everyday smoker. His COVID-19 test was positive and on chest x-ray he had evidence of bibasilar infiltrates that were suspicious for bacterial pneumonia superinfection compounded by acute exacerbation of COPD with acute hypoxic respiratory failure that required BiPAP. I suspect that this all triggered his atrial fibrillation given that he had not been medicated. He was placed on IV Cardizem and admitted to PCU. Cultures have been obtained and he was placed on broad-spectrum antibiotics to cover for community-acquired pneumonia. He also was found to have an elevated BNP at 376.6. He was placed on BiPAP at admission and by the morning after admission his oxygenation was good on BiPAP at 99% and he was able to be weaned to 5 L nasal cannula. On conversation with the patient he had been a smoker for a long period of time and smokes at least 1-1/2 packs of cigarettes daily. He has not had any medical care as of recently. He was frustrated on the fifth that we were not able to send him home. With his elevated BNP and is significant volume overloaded appearance he was placed on a Lasix drip without any good success. Echocardiogram was obtained and he was found to have severe global right ventricular systolic dysfunction, severe left global systolic dysfunction with an EF of 10 to 15%, moderate mitral valve insufficiency, severe tricuspid valve insufficiency, right ventricular systolic pressure of 49 mmHg and mild aortic valve insufficiency. He had severe biatrial dilation as well. On the evening of 09/18/2023 his serial BMPs that were ordered to monitor renal function in conjunction with his Lasix drip demonstrated hyperkalemia and the lead mason tender was called. An ABG was obtained and he was found to be acidotic. His acidosis was refractory to BiPAP so he required intubation and he was transferred to the ICU.. Shortly after intubation he developed a PEA arrest. ROSC was obtained. Is having intermittent bouts of bradycardia likely related to his hyperkalemia. He was placed on pressors that required maximum dosing and he was found to have worsening renal function and shock liver related to the above infection and his arrest. He was placed on CVVHD after dialysis catheter was placed. A right IJ was placed after his code. Unfortunately his condition deteriorated throughout the day. We were able to contact family and they elected to move towards comfort measures. He was terminally extubated and on 09/20/2023 at 0251. Discharge diagnoses: Cardiac arrest with PEA Acute hypoxic and hypercapnic respiratory failure Acute COVID-19 infection Combined right and left-sided heart failure Septic and cardiogenic shock Sick sinus syndrome Severe tricuspid regurgitation Moderate mitral valve regurgitation SHRUTHI Shock liver Refractory hyperkalemia Paroxysmal atrial fibrillation with RVR Lower extremity cellulitis-left Hypertension Hyperlipidemia DM-2 Diabetic neuropathy History of right carotid artery stenosis AVELINA Suspected COPD Obesity Tobacco abuse
== END 2023-09-20 04:38 | DRG 871 ==
LOC: ED 20:32 → PCU 21:01 → ICU 09-19 01:31
PROVIDERS: Admitting Provider Internal Medicine; Emergency Provider Student in an Organized Health Care Education/Training Program; Visit Provider Internal Medicine
DX: A41.9 Sepsis, unspecified organism (principal); U07.1 COVID-19; J96.01 Acute respiratory failure with hypoxia; K72.00 Acute and subacute hepatic failure without coma; J12.82 Pneumonia due to coronavirus disease 2019; R65.21 Severe sepsis with septic shock; J15.9 Unspecified bacterial pneumonia; J96.02 Acute respiratory failure with hypercapnia; J44.0 Chronic obstructive pulmonary disease with (acute) lower respiratory infection; I13.0 Hypertensive heart and chronic kidney disease with heart failure and stage 1 through stage 4 chronic kidney disease, or unspecified chronic kidney disease; I50.1 Left ventricular failure, unspecified; I48.20 Chronic atrial fibrillation, unspecified; J44.1 Chronic obstructive pulmonary disease with (acute) exacerbation; N17.9 Acute kidney failure, unspecified; I48.92 Unspecified atrial flutter; I42.0 Dilated cardiomyopathy; J45.901 Unspecified asthma with (acute) exacerbation; E87.29 Other acidosis; L03.116 Cellulitis of left lower limb; R57.0 Cardiogenic shock; E11.40 Type 2 diabetes mellitus with diabetic neuropathy, unspecified; I27.20 Pulmonary hypertension, unspecified; E11.22 Type 2 diabetes mellitus with diabetic chronic kidney disease; I46.9 Cardiac arrest, cause unspecified; I49.5 Sick sinus syndrome; I08.3 Combined rheumatic disorders of mitral, aortic and tricuspid valves; N18.9 Chronic kidney disease, unspecified; E78.5 Hyperlipidemia, unspecified; I44.0 Atrioventricular block, first degree; E87.5 Hyperkalemia; G47.33 Obstructive sleep apnea (adult) (pediatric); F17.210 Nicotine dependence, cigarettes, uncomplicated; Z68.38 Body mass index [BMI] 38.0-38.9, adult; Z91.199 Patient's noncompliance with other medical treatment and regimen due to unspecified reason; F41.1 Generalized anxiety disorder; E66.9 Obesity, unspecified; Z51.5 Encounter for palliative care
CPT/HCPCS: 31500; 31720; 36415; 36600; 71045; 71275; 80048; 80053; 80061; 81001; 82550; 82803; 82962; 83036; 83605; 83735; 83880; 84100; 84443; 84478; 85025; 85379; 85610; 85730; 86140; 87040; 87070; 87086; 87205; 87449; 87631; 87641; 90947; 93005; 93306; 93970; 94002; 94003; 94640; 94667; 94668; 94762; 97802; 99252; 99285; J7030; J7040; J7050; Q9957; Q9967; A4216; C1751; C8929; G0463; J0248; J0612; J1940; J3490